=== PATIENT | male | born 1945 | race Caucasian/White ===

== ENCOUNTER 2017-04-17 14:29 | Emergency (ER) | payer OTHER ==
--- NOTE | 2017-04-17 15:45 | CR ---
EXAMINATION: Left shoulder HISTORY: Pain COMPARISON: 07/05/2014 TECHNIQUE: 3 views FINDINGS/IMPRESSION: Left shoulder replacement hardware is noted in good position and alignment. The re is no fracture or acute osseous abnormality. Moderate acromioclavicular osteoarthritic changes ar e noted.
--- NOTE | 2017-04-17 15:57 | EDM.PDOC ---
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 He denies any numbness or tingling he denies actual pain states it just "feels funny". He denies any numbness or tingling in his hand pain in his neck. Review of systems: As per history of present illness and below otherwise all systems reviewed and negative. Past medical history: As per history of present illness and as reviewed below otherwise noncontributory. Surgical history: As per history of present illness and as reviewed below otherwise noncontributory. Social history: No reported history of drug or alcohol abuse. Family history: As per history of present illness and as reviewed below otherwise noncontributory. Physical exam: General: Well developed, well nourished in NAD HEENT: Atraumatic, normocephalic, pupils reactive, negative for conjunctival pallor or scleral icterus, mucous membranes moist, throat clear, neck supple, nontender, trachea midline. Lungs: Clear to auscultation, breath sounds equal bilaterally, chest nontender. Heart: S1S2, regular, negative for clicks, rubs, or JVD. Abdomen: Soft, nondistended, nontender. Negative for masses or hepatosplenomegaly. Negative for costovertebral tenderness. Pelvis: Stable nontender. Genitourinary: Deferred. Rectal: Deferred. Extremities: Atraumatic, negative for cords or calf pain. Neurovascular unremarkable. Neuro: Awake, alert, oriented. Cranial nerves II through XII unremarkable. Cerebellum unremarkable. Motor and sensory unremarkable throughout. Exam nonfocal. Diagnostics: []X-ray showing shoulder hardware in place with good alignment Therapeutics: [] Impression: []Left Shoulder strain Plan: []Ice to shoulder, Motrin for pain and follow-up with PMD as needed Definitive disposition and diagnosis as appropriate pending reevaluation and review of above. Left Shoulder Pain Score (Numeric/FACES): 2 - Related Data Allergies Allergy/AdvReac Type Severity Reaction Status Date / Time No Known Allergies Allergy Verified 04/17/17 14:43 Home Meds: Home Meds Aspirin 325 mg PO DAILY 04/17/17 [History] Gemfibrozil 600 mg PO DAILY 04/17/17 [History] Levothyroxine 1.75 mcg PO ACBREAKFAST 04/17/17 [History] Lisinopril 5 mg PO DAILY 04/17/17 [History] Metoprolol Succinate [Toprol XL] 25 mg PO DAILY 04/17/17 [History] Simvastatin [Zocor] 20 mg PO BEDTIME 04/17/17 [History] Tamsulosin [Flomax] 0.4 mg PO BEDTIME 04/17/17 [History] Zolpidem [Ambien] 10 mg PO BEDTIME 04/17/17 [History] sitaGLIPtin Phos/Metformin HCl [Janumet 50-1,000 MG] 1,000 mg PO DAILY 04/17/17 [History] Past Medical History Cardiovascular History: Reports: High Cholesterol, Hypertension Psychiatric History: Reports: Depression Endocrine/Metabolic History: Reports: Diabetes, Type II - Infectious Disease History Infectious Disease History: Reports: Chicken Pox, Measles, Mumps - Past Surgical History HEENT Surgical History: Reports: Tonsillectomy Other HEENT Surgeries/Procedures: dental surgery GI Surgical History: Reports: Cholecystectomy Endocrine Surgical History: Reports: Thyroidectomy Social & Family History - Family History Family Medical History: Noncontributory - Tobacco Use Smoking Status *Q: Never Smoker Second Hand Smoke Exposure: No - Caffeine Use Caffeine Use: Reports: Coffee Caffeine Use Comment: 2cups/day - Alcohol Use Days Per Week of Alcohol Use: 0 - Recreational Drug Use Recreational Drug Use: No Review of Systems - Review of Systems Review Of Systems: See Below (See history of present illness) ED EXAM, GENERAL - Physical Exam Exam: See Below (See history of present illness) Course - Vital Signs Last Recorded V/S: Last Vital Signs Temp 36.4 C 04/17/17 14:37 Pulse 66 04/17/17 14:37 Resp 20 04/17/17 14:37 BP 148/68 H 04/17/17 14:37 Pulse Ox 97 04/17/17 14:37 Departure - Departure Time of Disposition: 15:56 Disposition: Home, Self-Care 01 Condition: good Clinical Impression: Left shoulder strain Qualifiers: Encounter type: initial encounter Qualified Code(s): S46.912A - Strain of unspecified muscle, fascia and tendon at shoulder and upper arm level, left arm , initial encounter - Discharge Information Referrals: Kodi Quiroz MD [Primary Care Provider] - Additional Instructions: The following information is given to patients seen in the emergency department who are being discharged to home. This information is to outline your options for follow-up care. We provide all patients seen in our emergency department with a follow-up referral. The need for follow-up, as well as the timing and circumstances, are variable depending upon the specifics of your emergency department visit. If you don't have a primary care physician on staff, we will provide you with a referral. We always advise you to contact your personal physician following an emergency department visit to inform them of the circumstance of the visit and for follow-up with them and/or the need for any referrals to a consulting specialist. The emergency department will also refer you to a specialist when appropriate. This referral assures that you have the opportunity for follow-up care with a specialist. All of these measure are taken in an effort to provide you with optimal care, which includes your follow-up. Under all circumstances we always encourage you to contact your private physician who remains a resource for coordinating your care. When calling for follow-up care, please make the office aware that this follow-up is from your recent emergency room visit. If for any reason you are refused follow-up, please contact the [facility] Emergency Department at and asked to speak to the emergency department charge nurse. [facility] [address] [place] [id number]
[2017-04-17 16:13] VITALS: BP 117/70
== END 2017-04-17 16:13 | disposition home or self-care (01) ==
LOC: MW.ED 14:29
DX: S46.912A Strain of unspecified muscle, fascia and tendon at shoulder and upper arm level, left arm, initial encounter (principal); I10 Essential (primary) hypertension; E78.00 Pure hypercholesterolemia, unspecified; E11.9 Type 2 diabetes mellitus without complications; Z90.49 Acquired absence of other specified parts of digestive tract; Z98.890 Other specified postprocedural states; Z79.82 Long term (current) use of aspirin; Z79.899 Other long term (current) drug therapy; Z96.612 Presence of left artificial shoulder joint; X50.0XXA Overexertion from strenuous movement or load, initial encounter; Y93.89 Activity, other specified; Y99.0 Civilian activity done for income or pay
CPT/HCPCS: 73030-26-LT; 73030-LT; 99282; 99283

== ENCOUNTER 2017-05-09 13:38 | Emergency (ER) | payer OTHER ==
[2017-05-09] MEDS ORDERED: Sodium Chloride 0.9% 2.5 ML Syringe FLUSH PRN (14:04)
[2017-05-09] MEDS ORDERED: Sodium Chloride 0.9% 10 ML Syringe FLUSH PRN (14:04)
[2017-05-09] MEDS ORDERED: Sodium Chloride 0.9% 1,000 ML IV ONE ×2 (14:06→15:30)
--- NOTE | 2017-05-09 14:14 | EDM.PDOC ---
ED HPI GENERAL MEDICAL PROBLEM - General Chief Complaint: Syncope Stated Complaint: LIGHT HEADED Time Seen by Provider: 05/09/17 14:12 Source of Information: Reports: Patient, Family History Limitations: Reports: No Limitations - History of Present Illness INITIAL COMMENTS - FREE TEXT/NARRATIVE: HISTORY AND PHYSICAL: []71-year-old male presenting with concerns of dizziness History of Present Illness: []This morning awakened blood sugar is 99. He took his medicines and weighted his hour and had breakfast Blood sugar was sent to 59. Is not feeling well and then reported the dizziness. Patient had been seen previously about a year ago was hospitalized at for similar symptoms. Diagnosis at that time was dehydration. Patient is a diabetic Primary care provider is Dr. Quiroz he was walking in the brush down the bed linens and noticed 3 ticks on him "the other day" he pulled them off there is an area with a raised erythema to his abdomen Review of Systems: As per history of present illness and below otherwise all systems reviewed and negative. Past medical history: As per history of present illness and as reviewed below otherwise noncontributory. Surgical history: As per history of present illness and as reviewed below otherwise noncontributory. Social history: No reported history of drug or alcohol abuse. Family history: As per history of present illness and as reviewed below otherwise noncontributory. Physical exam: Alert oriented no neurological deficits. Dizziness is increased when laying flat. Answering questions appropriately HEENT: Atraumatic, normocehpalic, pupils reactive, negative for conjunctival pallor or scleral icterus, mucous membranes moist, throat clear, neck supple, nontender, trachea midline. Lungs: Clear to auscultation, breath sounds equal bilaterally, chest non tender. Heart: S1S2, regular, negative for clicks, rubs, or JVD. Abdomen: Soft, nondistended, nontender. Negative for masses or hepatossplenmegaly. Negative for costovertebral tenderness. Erythematous area raised and firm Pelvis: Stable nontender. Genitourinary: Deferred. Rectal: Deferred Extremities: Atraumatic, negative for cords or calf pain. Neurovascular unremarkable. Neuro: Awake, alert, oriented. Cranial nerves II through XII unremarkable. Cerebellum unremarkable. Motor and sensory unremarkable throughout. Exam nonfocal. Diagnostics: [EKG chest x-ray CBC CMP urinalysis] Therapeutics: [Normal saline] Impression: []Positional vertigo Cellulitis from tick bite to abdomen Plan: []Doxycycline 100 mg twice a day 14 days Definitive disposition and diagnosis as appropriate pending reevaluation and review of above. Onset: Today, Sudden - Related Data Allergies Allergy/AdvReac Type Severity Reaction Status Date / Time No Known Allergies Allergy Verified 04/17/17 14:43 Home Meds: Home Meds Aspirin 325 mg PO DAILY 04/17/17 [History] Gemfibrozil 600 mg PO DAILY 04/17/17 [History] Levothyroxine 1.75 mcg PO ACBREAKFAST 04/17/17 [History] Lisinopril 5 mg PO DAILY 04/17/17 [History] Metoprolol Succinate [Toprol XL] 25 mg PO DAILY 04/17/17 [History] Simvastatin [Zocor] 20 mg PO BEDTIME 04/17/17 [History] Tamsulosin [Flomax] 0.4 mg PO BEDTIME 04/17/17 [History] Zolpidem [Ambien] 10 mg PO BEDTIME 04/17/17 [History] sitaGLIPtin Phos/Metformin HCl [Janumet 50-1,000 MG] 1,000 mg PO DAILY 04/17/17 [History] Canagliflozin [Invokana] 300 mg DAILY 05/09/17 [History] Doxycycline [Vibramycin] 100 mg PO Q12HR #30 cap 05/09/17 [Rx] Metronidazole [IJD: metroNIDAZOLE] 500 mg BID 05/09/17 [History] Sertraline [Zoloft] 25 mg DAILY 05/09/17 [History] Past Medical History Cardiovascular History: Reports: High Cholesterol, Hypertension Psychiatric History: Reports: Depression Endocrine/Metabolic History: Reports: Diabetes, Type II - Infectious Disease History Infectious Disease History: Reports: Chicken Pox, Measles, Mumps - Past Surgical History HEENT Surgical History: Reports: Tonsillectomy Other HEENT Surgeries/Procedures: dental surgery GI Surgical History: Reports: Cholecystectomy Endocrine Surgical History: Reports: Thyroidectomy Social & Family History - Family History Family Medical History: Noncontributory - Tobacco Use Smoking Status *Q: Never Smoker Second Hand Smoke Exposure: No - Caffeine Use Caffeine Use: Reports: Coffee Caffeine Use Comment: 2cups/day - Alcohol Use Days Per Week of Alcohol Use: 0 - Recreational Drug Use Recreational Drug Use: No ED ROS GENERAL - Review of Systems Review Of Systems: ROS reveals no pertinent complaints other than HPI. ED EXAM, DIZZINESS - Physical Exam Exam: See Below (see dictation) Course - Vital Signs Last Recorded V/S: Last Vital Signs Temp 36.4 C 05/09/17 14:05 Pulse 70 05/09/17 15:27 Resp 16 05/09/17 15:27 BP 137/88 05/09/17 15:27 Pulse Ox 97 05/09/17 15:27 - Orders/Labs/Meds Orders: Active Orders 24 hr Category Date Time Status EKG Documentation Completion [RC] STAT Care 05/09/17 14:05 Active Oxygen Therapy, ED [RC] ASDIRECTED Care 05/09/17 14:04 Active Sodium Chloride 0.9% [Normal Saline] 1,000 ml Med 05/09/17 15:30 Active IV STAT Sodium Chloride 0.9% [Saline Flush] Med 05/09/17 14:04 Active 10 ml FLUSH ASDIRECTED PRN Sodium Chloride 0.9% [Saline Flush] Med 05/09/17 14:04 Active 2.5 ml FLUSH ASDIRECTED PRN Saline Lock Insert [OM.PC] Stat Oth 05/09/17 14:04 Ordered Medication Orders Sodium Chloride (Normal Saline) 1,000 mls @ 999 mls/hr IV STAT ONE Stop: 05/09/17 16:30 Sodium Chloride (Saline Flush) 10 ml FLUSH ASDIRECTED PRN PRN Reason: Keep Vein Open Last Admin: 05/09/17 14:13 Dose: 10 ml Sodium Chloride (Saline Flush) 2.5 ml FLUSH ASDIRECTED PRN PRN Reason: Keep Vein Open Last Admin: 05/09/17 14:13 Dose: 2.5 ml Labs: Laboratory Tests 05/09/17 05/09/17 05/09/17 Range/Units 14:09 14:09 14:09 WBC 9.37 (4.0-11.0) K/uL RBC 4.69 (4.50-5.90) M/uL Hgb 13.8 (13.0-17.0) g/dL Hct 40.9 (38.0-50.0) % MCV 87.2 (80.0-98.0) fL MCH 29.4 (27.0-32.0) pg MCHC 33.7 (31.0-37.0) g/dL RDW Std Deviation 42.4 (28.0-62.0) fl RDW Coeff of Kalin 13 (11.0-15.0) % Plt Count 156 (150-400) K/uL MPV 8.90 (7.40-12.00) fL Neut % (Auto) 78.1 (48.0-80.0) % Lymph % (Auto) 14.2 L (16.0-40.0) % [place] % (Auto) 4.9 (0.0-15.0) % Eos % (Auto) 2.6 (0.0-7.0) % Baso % (Auto) 0.2 (0.0-1.5) % Neut # (Auto) 7.3 H (1.4-5.7) K/uL Lymph # (Auto) 1.3 (0.6-2.4) K/uL [place] # (Auto) 0.5 (0.0-0.8) K/uL Eos # (Auto) 0.2 (0.0-0.7) K/uL Baso # (Auto) 0.0 (0.0-0.1) K/uL Nucleated RBC % 0.0 /100WBC Nucleated RBCs # 0 K/uL Sodium 135 L (136-146) mmol/L Potassium 3.8 (3.5-5.1) mmol/L Chloride 105 (98-110) mmol/L Carbon Dioxide 19 L (21-31) mmol/L BUN 19 (6.0-23.0) mg/dL Creatinine 1.0 (0.6-1.5) mg/dL Est Cr Clr Drug Dosing 61.51 mL/min Estimated GFR (MDRD) > 60.0 ml/min Glucose 236 H (60-110) mg/dL Calcium 8.8 (8.8-10.8) mg/dL Total Bilirubin 0.5 (0.1-1.5) mg/dL AST 19 (5-40) IU/L ALT 22 (8-54) IU/L Alkaline Phosphatase 75 (40-150) Troponin I < 0.10 (0.0-0.29) NG/ML Total Protein 6.5 (6.0-8.0) g/dL Albumin 4.1 (3.4-4.8) g/dL Globulin 2.4 (2.0-3.5) g/dL Albumin/Globulin Ratio 1.7 (1.3-2.8) Urine Color Urine Appearance Urine pH (5.0-8.0) Ur Specific Nichols (1.001-1.035) Urine Protein (NEGATIVE) mg/dL Urine Glucose (UA) (NEGATIVE) mg/dL Urine Ketones (NEGATIVE) mg/dL Urine Occult Blood (NEGATIVE) Urine Nitrite (NEGATIVE) Urine Bilirubin (NEGATIVE) Urine Urobilinogen (<2.0) EU/dL Ur Leukocyte Esterase (NEGATIVE) Urine RBC (0-2/HPF) Urine WBC (0-5/HPF) Ur Epithelial Cells (NONE-FEW) Amorphous Sediment (NEGATIVE) Urine Bacteria (NEGATIVE) Urine Mucus (NONE-MOD) 05/09/17 Range/Units 15:20 WBC (4.0-11.0) K/uL RBC (4.50-5.90) M/uL Hgb (13.0-17.0) g/dL Hct (38.0-50.0) % MCV (80.0-98.0) fL MCH (27.0-32.0) pg MCHC (31.0-37.0) g/dL RDW Std Deviation (28.0-62.0) fl RDW Coeff of Kalin (11.0-15.0) % Plt Count (150-400) K/uL MPV (7.40-12.00) fL Neut % (Auto) (48.0-80.0) % Lymph % (Auto) (16.0-40.0) % [place] % (Auto) (0.0-15.0) % Eos % (Auto) (0.0-7.0) % Baso % (Auto) (0.0-1.5) % Neut # (Auto) (1.4-5.7) K/uL Lymph # (Auto) (0.6-2.4) K/uL [place] # (Auto) (0.0-0.8) K/uL Eos # (Auto) (0.0-0.7) K/uL Baso # (Auto) (0.0-0.1) K/uL Nucleated RBC % /100WBC Nucleated RBCs # K/uL Sodium (136-146) mmol/L Potassium (3.5-5.1) mmol/L Chloride (98-110) mmol/L Carbon Dioxide (21-31) mmol/L BUN (6.0-23.0) mg/dL Creatinine (0.6-1.5) mg/dL Est Cr Clr Drug Dosing mL/min Estimated GFR (MDRD) ml/min Glucose (60-110) mg/dL Calcium (8.8-10.8) mg/dL Total Bilirubin (0.1-1.5) mg/dL AST (5-40) IU/L ALT (8-54) IU/L Alkaline Phosphatase (40-150) Troponin I (0.0-0.29) NG/ML Total Protein (6.0-8.0) g/dL Albumin (3.4-4.8) g/dL Globulin (2.0-3.5) g/dL Albumin/Globulin Ratio (1.3-2.8) Urine Color YELLOW Urine Appearance CLEAR Urine pH 6.0 (5.0-8.0) Ur Specific Nichols <= 1.005 (1.001-1.035) Urine Protein NEGATIVE (NEGATIVE) mg/dL Urine Glucose (UA) >=1000 (NEGATIVE) mg/dL Urine Ketones NEGATIVE (NEGATIVE) mg/dL Urine Occult Blood NEGATIVE (NEGATIVE) Urine Nitrite NEGATIVE (NEGATIVE) Urine Bilirubin NEGATIVE (NEGATIVE) Urine Urobilinogen 0.2 (<2.0) EU/dL Ur Leukocyte Esterase NEGATIVE (NEGATIVE) Urine RBC NONE SEEN (0-2/HPF) Urine WBC 0-2 (0-5/HPF) Ur Epithelial Cells NOT SEEN (NONE-FEW) Amorphous Sediment NOT SEEN (NEGATIVE) Urine Bacteria NOT SEEN (NEGATIVE) Urine Mucus NOT SEEN (NONE-MOD) Meds: Medications Generic Name Dose Route Start Last Admin Trade Name Freq PRN Reason Stop Dose Admin Sodium Chloride 1,000 mls @ 999 mls/hr 05/09/17 15:30 Normal Saline IV 05/09/17 16:30 STAT ONE Sodium Chloride 10 ml 05/09/17 14:04 05/09/17 14:13 Saline Flush FLUSH 10 ml ASDIRECTED PRN Administration Keep Vein Open Sodium Chloride 2.5 ml 05/09/17 14:04 05/09/17 14:13 Saline Flush FLUSH 2.5 ml ASDIRECTED PRN Administration Keep Vein Open Discontinued Medications Generic Name Dose Route Start Last Admin Trade Name Freq PRN Reason Stop Dose Admin Sodium Chloride 1,000 mls @ 999 mls/hr 05/09/17 14:06 05/09/17 14:13 Normal Saline IV 05/09/17 15:06 999 mls/hr STAT ONE Administration Departure - Departure Time of Disposition: 15:56 Disposition: Home, Self-Care 01 Condition: Good Clinical Impression: Positional vertigo Qualifiers: Laterality: unspecified laterality Qualified Code(s): H81.10 - Benign paroxysmal vertigo, unspecified ear - Discharge Information Prescriptions: Doxycycline [Vibramycin] 100 mg PO Q12HR #30 cap Forms: ED Department Discharge Additional Instructions: The following information is given to patients seen in the emergency department who are being discharged to home. This information is to outline your options for follow-up care. We provide all patients seen in our emergency department with a follow-up referral. The need for follow-up, as well as the timing and circumstances, are variable depending upon the specifics of your emergency department visit. If you don't have a primary care physician on staff, we will provide you with a referral. We always advise you to contact your personal physician following an emergency department visit to inform them of the circumstance of the visit and for follow-up with them and/or the need for any referrals to a consulting specialist. The emergency department will also refer you to a specialist when appropriate. This referral assures that you have the opportunity for followup care with a specialist. All of these measure are taken in an effort to provide you with optimal care, which includes your followup. Under all circumstances we always encourage you to contact your private physician who remains a resource for coordinating your care. When calling for followup care, please make the office aware that this follow-up is from your recent emergency room visit. If for any reason you are refused follow-up, please contact the [facility] emergency department at and asked to speak to the emergency department charge nurse. Please follow-up with your primary care provider Dr. Quiroz Doxycycline has been issued for your cellulitis from tick bite - My Orders Last 24 Hours: My Active Orders 05/09/17 14:04 Oxygen Therapy, ED [RC] ASDIRECTED Sodium Chloride 0.9% [Saline Flush] 10 ml FLUSH ASDIRECTED PRN Sodium Chloride 0.9% [Saline Flush] 2.5 ml FLUSH ASDIRECTED PRN Saline Lock Insert [OM.PC] Stat 05/09/17 14:05 EKG Documentation Completion [RC] STAT 05/09/17 15:30 Sodium Chloride 0.9% [Normal Saline] 1,000 ml IV STAT - Assessment/Plan Last 24 Hours: My Active Orders 05/09/17 14:04 Oxygen Therapy, ED [RC] ASDIRECTED Sodium Chloride 0.9% [Saline Flush] 10 ml FLUSH ASDIRECTED PRN Sodium Chloride 0.9% [Saline Flush] 2.5 ml FLUSH ASDIRECTED PRN Saline Lock Insert [OM.PC] Stat 05/09/17 14:05 EKG Documentation Completion [RC] STAT 05/09/17 15:30 Sodium Chloride 0.9% [Normal Saline] 1,000 ml IV STAT
[2017-05-09 14:56] LABS: CHLORIDE,CL 105 mmol/L (98-110); SODIUM,NA 135 mmol/L (136-146)
--- NOTE | 2017-05-09 15:06 | CR ---
EXAMINATION: AP chest radiograph. HISTORY: Shortness of breath. FINDINGS: The trachea is midline. The cardiomediastinal silhouette is within normal limits. No pulmonary infil trates, effusions or pneumothorax. Left shoulder replacement hardware noted. IMPRESSION: No acute cardiopulmonary process.
--- NOTE | 2017-05-09 15:10 | CT ---
EXAMINATION: Non contrast CT head. Coronal and sagittal reformats. HISTORY: Pain FINDINGS: No evidence of intra or extra axial hemorrhage, mass, midline shift, hydrocephalus or edema. There is a stable prominence of the extra-axial spaces within the anterior aspect of the left temporal lob e, this could represent an underlying arachnoid cyst. Likely an old tiny periventricular lacunar inf arct within the left parietal region. No hypoattenuation changes in the major vascular territories to suggest acute infarct. No abnormal intracranial calcifications are detected. Mild vascular calcifications. Paranasal sinuses and mastoid air cells are well aerated without substantial findings. The orbits a nd globes are symmetric. Pituitary fossa appears unremarkable. Calvarium is intact. No evidence of skull fracture. IMPRESSION: No acute intracranial findings.
[2017-05-09 16:44] VITALS: BP 121/80
== END 2017-05-09 16:58 | disposition home or self-care (01) ==
LOC: MW.ED 13:38
DX: H81.10 Benign paroxysmal vertigo, unspecified ear (principal); S30.861A Insect bite (nonvenomous) of abdominal wall, initial encounter; L03.311 Cellulitis of abdominal wall; I10 Essential (primary) hypertension; E78.00 Pure hypercholesterolemia, unspecified; F32.9 Major depressive disorder, single episode, unspecified; E11.9 Type 2 diabetes mellitus without complications; Z98.890 Other specified postprocedural states; Z90.49 Acquired absence of other specified parts of digestive tract; E89.0 Postprocedural hypothyroidism; Z79.82 Long term (current) use of aspirin; Z79.899 Other long term (current) drug therapy; W57.XXXA Bitten or stung by nonvenomous insect and other nonvenomous arthropods, initial encounter
CPT/HCPCS: 36415; 70450; 71010; 80053; 81001; 84484; 85025; 93005; 96360; 96361; 99284; J7040

== ENCOUNTER 2017-10-15 22:06 | Observation (INO) | payer OTHER, MEDICARE ==
[2017-10-15] MEDS ORDERED: Sodium Chloride 0.9% 10 ML Syringe FLUSH PRN (22:11)
[2017-10-15] MEDS ORDERED: Sodium Chloride 0.9% 2.5 ML Syringe FLUSH PRN (22:11)
[2017-10-15] MEDS ORDERED: Sodium Chloride 0.9% 1,000 ML IV ONE (22:11)
[2017-10-15] MEDS ORDERED: diphenhydrAMINE 50 MG/ML SDV IVPUSH ONE (22:11)
--- NOTE | 2017-10-15 22:16 | EDM.PDOC ---
ED HPI GENERAL MEDICAL PROBLEM - General Chief Complaint: Gastrointestinal Problem Stated Complaint: sick Time Seen by Provider: 10/15/17 22:10 - History of Present Illness INITIAL COMMENTS - FREE TEXT/NARRATIVE: HISTORY AND PHYSICAL: History of present illness: The patient is a 72-year-old male who follows in our family practice clinic with Dr. Quiroz and has a history of diabetes a cardiac stent in 1995 diverticulitis hypertension hypercholesterolemia and hypothyroidism who presents via EMS for complaints of nausea and vomiting that started about 8 or 9 this morning and then nausea throughout the day without any vomiting until this evening. The patient denies any abdominal pain chest pain shortness of breath and has no headaches fevers chills or upper respiratory symptoms. The patient said he vomited a few times this morning and then was just nauseated all day and then had an emesis after EMS was called which per their report look like undigested food no black or bloody emesis. The patient says he has never had any abdominal pain and has no pain at all. The patient tells me he does not follow with a technical illustrator and is stable from his cardiac standpoint and has no abdominal surgical history. He says he was last treated for his diverticulitis in the spring. He says he always has loose stools and they are not different as far as character or color and they're not black or bloody. The patient currently in the ED says he feels a little bit dizzy but is not lightheaded and he has no recent head trauma. Patient does admit to me that he does have a history of vertigo in the past for which she had a CT physical therapy and he is not sure that this feels like his prior episode. He does tell me that when he moves his head he does feel little more dizzy. He currently denies any headache. Patient received 8 mg of Zofran prior to arrival per EMS and he states he does feel less nauseated. Review of systems: As per history of present illness and below otherwise all systems reviewed and negative. Past medical history: As per history of present illness and as reviewed below otherwise noncontributory. Surgical history: As per history of present illness and as reviewed below otherwise noncontributory. Social history: No reported history of drug or alcohol abuse. Family history: As per history of present illness and as reviewed below otherwise noncontributory. Physical exam: Gen.: Well-developed well-nourished man who is mildly overweight and has some vomitus on his shirt. He is awake alert and communicating clearly and moving all extremities without distress. HEENT: Atraumatic, normocephalic, pupils reactive, EOMs are intact and I am not able to elicit any nystagmus, when asked the patient to move his head side to side quickly he does say that he feels a little dizzy with that negative for conjunctival pallor or scleral icterus, mucous membranes tacky, throat clear, neck supple, nontender, trachea midline. Lungs: Clear to auscultation, breath sounds equal bilaterally, chest nontender. Heart: S1S2, regular, negative for clicks, rubs, or JVD. Abdomen: Soft, nondistended, nontender. Negative for masses or hepatosplenomegaly. Negative for costovertebral tenderness. Pelvis: Stable nontender. Genitourinary: Deferred. Rectal: Deferred. Extremities: Atraumatic, negative for cords or calf pain. Neurovascular unremarkable. No pedal edema and full range of motion Neuro: Awake, alert, oriented. Cranial nerves II through XII unremarkable. Cerebellum unremarkable. Motor and sensory unremarkable throughout. Exam nonfocal. Diagnostics: EKG CBC CMP amylase lipase troponin UA CT scan of the head chest x-ray lactate blood cultures 2 Therapeutics: IV O2 monitor IV fluids, patient received 8 mg of Zofran per EMS prior to arrival, Benadryl and Tylenol for his fever of 100.[address] [facility] and I got the patient up because he wanted to urinate in the bathroom not in the bed with the urinal and I was able to witness his gait. He says he feels steady but he looks somewhat wobbly and a bit off balance but is not exhibiting any signs of weakness. He seems a bit disoriented with direction he is being given such as he is not sure where the urine cup is one he is holding his hands. He does state that he is not dizzy or lightheaded and still has no pain such as chest pain or abdominal pain. Since he has arrived he has not had any vomiting and he states he does not feel nauseated. I asked the son about what I witnessed. The son tells me that he packed his father up from work this morning as he said he was starting to have a "migraine headache" and the son states that when he gets these headaches he sometimes is confused and not quite himself. He noticed that he seemed somewhat infused throughout the whole day today but he did not think that that was particularly different than prior episodes when he has had headaches. The patient initially denied to me that he ever had a headache today but when I specifically questioned him with what the son told me he says that yes he does have a diagnosis of migraine headaches and he gets them intermittently and this was a typical headache for him. He usually has nausea and dizziness with his migraines and he says that maybe the symptoms he is experiencing now is due to his headache. He is asking for an ice pack as this usually helps. I discussed testing results with the son and the patient and have advised admission to the hospital and will discuss this case with our hospitalist. The patient is currently resting comfortably and overall looks clinically improved. 0025: Case was discussed with our hospitalist Dr. Osman agrees with the care plan as well as requesting observation admission. Impression: Right upper lobe pneumonia Nausea and vomiting, mild confusion, history of migraine headaches Definitive disposition and diagnosis as appropriate pending reevaluation and review of above. - Related Data Allergies Allergy/AdvReac Type Severity Reaction Status Date / Time No Known Allergies Allergy Verified 10/15/17 22:28 Home Meds: Home Meds Aspirin 325 mg PO DAILY 04/17/17 [History] Gemfibrozil 600 mg PO DAILY 04/17/17 [History] Levothyroxine 1.75 mcg PO ACBREAKFAST 04/17/17 [History] Lisinopril 5 mg PO DAILY 04/17/17 [History] Metoprolol Succinate [Toprol XL] 25 mg PO DAILY 04/17/17 [History] Simvastatin [Zocor] 20 mg PO BEDTIME 04/17/17 [History] Tamsulosin [Flomax] 0.4 mg PO BEDTIME 04/17/17 [History] Zolpidem [Ambien] 10 mg PO BEDTIME 04/17/17 [History] sitaGLIPtin Phos/Metformin HCl [Janumet 50-1,000 MG] 1,000 mg PO DAILY 04/17/17 [History] Canagliflozin [Invokana] 300 mg DAILY 05/09/17 [History] Sertraline [Zoloft] 25 mg DAILY 05/09/17 [History] Isomethept/Dichlphn/Acetaminop [Gwetisdnwa-Nptqcgmxys-Xlylimgp] 1 each PO ASDIRECTED PRN 10/15/17 [History] Past Medical History Cardiovascular History: Reports: Angina, High Cholesterol, Hypertension Respiratory History: Reports: Sleep Apnea Gastrointestinal History: Reports: Diverticulosis Genitourinary History: Reports: BPH Musculoskeletal History: Reports: RA Neurological History: Reports: Migraines Psychiatric History: Reports: Depression Endocrine/Metabolic History: Reports: Diabetes, Type II Oncologic (Cancer) History: Reports: Thyroid - Infectious Disease History Infectious Disease History: Reports: Chicken Pox, Measles, Mumps - Past Surgical History Head Surgeries/Procedures: Reports: None HEENT Surgical History: Reports: Tonsillectomy Other HEENT Surgeries/Procedures: dental surgery Cardiovascular Surgical History: Reports: Coronary Artery Stent GI Surgical History: Reports: Cholecystectomy Endocrine Surgical History: Reports: Thyroidectomy Musculoskeletal Surgical History: Reports: Shoulder Replacement Social & Family History - Family History Family Medical History: Noncontributory - Tobacco Use Smoking Status *Q: Never Smoker Second Hand Smoke Exposure: No - Caffeine Use Caffeine Use: Reports: Coffee Caffeine Use Comment: 2cups/day - Alcohol Use Days Per Week of Alcohol Use: 0 - Recreational Drug Use Recreational Drug Use: No ED ROS GENERAL - Review of Systems Review Of Systems: ROS reveals no pertinent complaints other than HPI. ED EXAM, GENERAL - Physical Exam Exam: See Below (See dictation) Course - Vital Signs Last Recorded V/S: Last Vital Signs Temp 38.1 C 10/15/17 22:21 Pulse 87 10/15/17 22:21 Resp 12 10/15/17 22:21 BP 123/84 10/15/17 22:21 Pulse Ox 97 10/15/17 22:21 - Orders/Labs/Meds Orders: Active Orders 24 hr Category Date Time Status Patient Status [ADT] Stat ADT 10/16/17 00:33 Ordered Cardiac Monitoring [RC] . DIRECTED Care 10/15/17 22:11 Active EKG Documentation Completion [RC] STAT Care 10/15/17 22:11 Active Oxygen Therapy, ED [RC] ASDIRECTED Care 10/15/17 22:11 Active Pulse Oximetry [RC] ASDIRECTED Care 10/15/17 22:11 Active Chest 1V Frontal [CR] Stat Exams 10/15/17 22:11 Taken Head wo Cont [CT] Stat Exams 10/15/17 22:11 Taken CULTURE BLOOD [BC] Stat Lab 10/15/17 22:39 Received CULTURE BLOOD [BC] Stat Lab 10/15/17 22:48 Received Sodium Chloride 0.9% [Normal Saline] 1,000 ml Med 10/16/17 00:00 Active IV ASDIRECTED Sodium Chloride 0.9% [Saline Flush] Med 10/15/17 22:11 Active 10 ml FLUSH ASDIRECTED PRN Sodium Chloride 0.9% [Saline Flush] Med 10/15/17 22:11 Active 2.5 ml FLUSH ASDIRECTED PRN Blood Culture x2 Reflex Set [OM.PC] Stat Oth 10/15/17 22:25 Ordered Saline Lock Insert [OM.PC] Stat Oth 10/15/17 22:11 Ordered Medication Orders Sodium Chloride (Normal Saline) 1,000 mls @ 75 mls/hr IV ASDIRECTED DENY Last Admin: 10/16/17 00:02 Dose: 75 mls/hr Sodium Chloride (Saline Flush) 10 ml FLUSH ASDIRECTED PRN PRN Reason: Keep Vein Open Last Admin: 10/15/17 22:29 Dose: 10 ml Sodium Chloride (Saline Flush) 2.5 ml FLUSH ASDIRECTED PRN PRN Reason: Keep Vein Open Last Admin: 10/15/17 22:29 Dose: 2.5 ml Labs: Laboratory Tests 10/15/17 10/15/17 10/15/17 Range/Units 22:27 22:27 22:27 WBC 12.51 H (4.0-11.0) K/uL RBC 4.88 (4.50-5.90) M/uL Hgb 14.3 (13.0-17.0) g/dL Hct 41.6 (38.0-50.0) % MCV 85.2 (80.0-98.0) fL MCH 29.3 (27.0-32.0) pg MCHC 34.4 (31.0-37.0) g/dL RDW Std Deviation 40.0 (28.0-62.0) fl RDW Coeff of Kalin 13 (11.0-15.0) % Plt Count 190 (150-400) K/uL MPV 9.10 (7.40-12.00) fL Neut % (Auto) 77.9 (48.0-80.0) % Lymph % (Auto) 16.1 (16.0-40.0) % Ma[place]ick % (Auto) 5.7 (0.0-15.0) % Eos % (Auto) 0.1 (0.0-7.0) % Baso % (Auto) 0.2 (0.0-1.5) % Neut # (Auto) 9.8 H (1.4-5.7) K/uL Lymph # (Auto) 2.0 (0.6-2.4) K/uL Ma[place]ick # (Auto) 0.7 (0.0-0.8) K/uL Eos # (Auto) 0.0 (0.0-0.7) K/uL Baso # (Auto) 0.0 (0.0-0.1) K/uL Nucleated RBC % 0.0 /100WBC Nucleated RBCs # 0 K/uL Lactate 1.4 (0.20-2.00) mmol/L Sodium 134 L (136-146) mmol/L Potassium 3.6 (3.5-5.1) mmol/L Chloride 102 (98-110) mmol/L Carbon Dioxide 20 L (21-31) mmol/L BUN 21 (6.0-23.0) mg/dL Creatinine 1.3 (0.6-1.5) mg/dL Est Cr Clr Drug Dosing 47.42 mL/min Estimated GFR (MDRD) 54.0 ml/min Glucose 135 H (60-110) mg/dL Calcium 9.3 (8.8-10.8) mg/dL Total Bilirubin 0.5 (0.1-1.5) mg/dL AST 14 (5-40) IU/L ALT 15 (8-54) IU/L Alkaline Phosphatase 79 (40-150) Troponin I < 0.10 (0.0-0.29) NG/ML Total Protein 7.1 (6.0-8.0) g/dL Albumin 4.3 (3.4-4.8) g/dL Globulin 2.8 (2.0-3.5) g/dL Albumin/Globulin Ratio 1.5 (1.3-2.8) Amylase 41 (10-90) U/L Lipase 14 (7-80) U/L Urine Color Urine Appearance Urine pH (5.0-8.0) Ur Specific [place] (1.001-1.035) Urine Protein (NEGATIVE) mg/dL Urine Glucose (UA) (NEGATIVE) mg/dL Urine Ketones (NEGATIVE) mg/dL Urine Occult Blood (NEGATIVE) Urine Nitrite (NEGATIVE) Urine Bilirubin (NEGATIVE) Urine Urobilinogen (<2.0) EU/dL Ur Leukocyte Esterase (NEGATIVE) Urine RBC (0-2/HPF) Urine WBC (0-5/HPF) Ur Epithelial Cells (NONE-FEW) Urine Bacteria (NEGATIVE) 10/15/17 Range/Units 23:30 WBC (4.0-11.0) K/uL RBC (4.50-5.90) M/uL Hgb (13.0-17.0) g/dL Hct (38.0-50.0) % MCV (80.0-98.0) fL MCH (27.0-32.0) pg MCHC (31.0-37.0) g/dL RDW Std Deviation (28.0-62.0) fl RDW Coeff of Kalin (11.0-15.0) % Plt Count (150-400) K/uL MPV (7.40-12.00) fL Neut % (Auto) (48.0-80.0) % Lymph % (Auto) (16.0-40.0) % Maverick % (Auto) (0.0-15.0) % Eos % (Auto) (0.0-7.0) % Baso % (Auto) (0.0-1.5) % Neut # (Auto) (1.4-5.7) K/uL Lymph # (Auto) (0.6-2.4) K/uL Maverick # (Auto) (0.0-0.8) K/uL Eos # (Auto) (0.0-0.7) K/uL Baso # (Auto) (0.0-0.1) K/uL Nucleated RBC % /100WBC Nucleated RBCs # K/uL Lactate (0.20-2.00) mmol/L Sodium (136-146) mmol/L Potassium (3.5-5.1) mmol/L Chloride (98-110) mmol/L Carbon Dioxide (21-31) mmol/L BUN (6.0-23.0) mg/dL Creatinine (0.6-1.5) mg/dL Est Cr Clr Drug Dosing mL/min Estimated GFR (MDRD) ml/min Glucose (60-110) mg/dL Calcium (8.8-10.8) mg/dL Total Bilirubin (0.1-1.5) mg/dL AST (5-40) IU/L ALT (8-54) IU/L Alkaline Phosphatase (40-150) Troponin I (0.0-0.29) NG/ML Total Protein (6.0-8.0) g/dL Albumin (3.4-4.8) g/dL Globulin (2.0-3.5) g/dL Albumin/Globulin Ratio (1.3-2.8) Amylase (10-90) U/L Lipase (7-80) U/L Urine Color YELLOW Urine Appearance CLEAR Urine pH 5.5 (5.0-8.0) Ur Specific [place] 1.010 (1.001-1.035) Urine Protein NEGATIVE (NEGATIVE) mg/dL Urine Glucose (UA) >=1000 (NEGATIVE) mg/dL Urine Ketones NEGATIVE (NEGATIVE) mg/dL Urine Occult Blood NEGATIVE (NEGATIVE) Urine Nitrite NEGATIVE (NEGATIVE) Urine Bilirubin NEGATIVE (NEGATIVE) Urine Urobilinogen 0.2 (<2.0) EU/dL Ur Leukocyte Esterase NEGATIVE (NEGATIVE) Urine RBC 0-2 (0-2/HPF) Urine WBC 0-1 (0-5/HPF) Ur Epithelial Cells RARE (NONE-FEW) Urine Bacteria FEW (NEGATIVE) Meds: Medications Generic Name Dose Route Start Last Admin Trade Name Freq PRN Reason Stop Dose Admin Sodium Chloride 1,000 mls @ 75 mls/hr 10/16/17 00:00 10/16/17 00:02 Normal Saline IV 75 mls/hr ASDIRECTED DENY Administration Sodium Chloride 10 ml 10/15/17 22:11 10/15/17 22:29 Saline Flush FLUSH 10 ml ASDIRECTED PRN Administration Keep Vein Open Sodium Chloride 2.5 ml 10/15/17 22:11 10/15/17 22:29 Saline Flush FLUSH 2.5 ml ASDIRECTED PRN Administration Keep Vein Open Discontinued Medications Generic Name Dose Route Start Last Admin Trade Name Freq PRN Reason Stop Dose Admin Acetaminophen 650 mg 10/15/17 22:25 10/15/17 22:29 Tylenol PO 10/15/17 22:26 650 mg NOW ONE Administration Diphenhydramine HCl 25 mg 10/15/17 22:11 10/15/17 22:29 Benadryl IVPUSH 10/15/17 22:12 25 mg ONETIME ONE Administration Sodium Chloride 1,000 mls @ 999 mls/hr 10/15/17 22:11 10/15/17 22:29 Normal Saline IV 10/15/17 23:11 999 mls/hr STAT ONE Administration Ceftriaxone Sodium/Dextrose 1 50 mls @ 100 mls/hr 10/15/17 23:48 10/16/17 00: 27 gm/ Premix IV 10/16/17 00:17 100 mls/hr ONETIME ONE Administration Piperacillin Sod/Tazobactam 50 mls @ 100 mls/hr 10/15/17 23:48 10/15/17 23:59 Sod 3.375 gm/ Sodium Chloride IV 10/16/17 00:17 100 mls/hr ONETIME ONE Administration Departure - Departure Time of Disposition: 00:03 Disposition: Refer to Observation Condition: Good Clinical Impression: Confusion Pneumonia Qualifiers: Pneumonia type: due to unspecified organism Laterality: right Lung location: upper lobe of lung Qualified Code(s): J18.1 - Lobar pneumonia, unspecified organism Vomiting Qualifiers: Vomiting type: unspecified Vomiting Intractability: non-intractable Nausea presence: with nausea Qualified Code(s): R11.2 - Nausea with vomiting, unspecified - Discharge Information Referrals: Luisa Messer PA [Primary Care Provider] - Forms: ED Department Discharge - My Orders Last 24 Hours: My Active Orders 10/15/17 22:11 Cardiac Monitoring [RC] . DIRECTED EKG Documentation Completion [RC] STAT Oxygen Therapy, ED [RC] ASDIRECTED Pulse Oximetry [RC] ASDIRECTED Chest 1V Frontal [CR] Stat Head wo Cont [CT] Stat Sodium Chloride 0.9% [Saline Flush] 10 ml FLUSH ASDIRECTED PRN Sodium Chloride 0.9% [Saline Flush] 2.5 ml FLUSH ASDIRECTED PRN Saline Lock Insert [OM.PC] Stat 10/15/17 22:25 Blood Culture x2 Reflex Set [OM.PC] Stat 10/15/17 22:39 CULTURE BLOOD [BC] Stat 10/15/17 22:48 CULTURE BLOOD [BC] Stat 10/16/17 00:00 Sodium Chloride 0.9% [Normal Saline] 1,000 ml IV ASDIRECTED 10/16/17 00:33 Patient Status [ADT] Stat - Assessment/Plan Last 24 Hours: My Active Orders 10/15/17 22:11 Cardiac Monitoring [RC] . DIRECTED EKG Documentation Completion [RC] STAT Oxygen Therapy, ED [RC] ASDIRECTED Pulse Oximetry [RC] ASDIRECTED Chest 1V Frontal [CR] Stat Head wo Cont [CT] Stat Sodium Chloride 0.9% [Saline Flush] 10 ml FLUSH ASDIRECTED PRN Sodium Chloride 0.9% [Saline Flush] 2.5 ml FLUSH ASDIRECTED PRN Saline Lock Insert [OM.PC] Stat 10/15/17 22:25 Blood Culture x2 Reflex Set [OM.PC] Stat 10/15/17 22:39 CULTURE BLOOD [BC] Stat 10/15/17 22:48 CULTURE BLOOD [BC] Stat 10/16/17 00:00 Sodium Chloride 0.9% [Normal Saline] 1,000 ml IV ASDIRECTED 10/16/17 00:33 Patient Status [ADT] Stat
[2017-10-15] MEDS ORDERED: Acetaminophen 325 MG Tab PO ONE (22:25)
[2017-10-15 22:57] LABS: CHLORIDE,CL 102 mmol/L (98-110); SODIUM,NA 134 mmol/L (136-146)
[2017-10-15] MEDS ORDERED: cefTRIAXone 1 GM in Premix Bag 1 BAG IV ONE (23:48)
[2017-10-15] MEDS ORDERED: Piperacillin/Tazobactam 3.375 GM in Sodium Chloride 0.9% 50 ML IV ONE (23:48)
[2017-10-16] MEDS ORDERED: Sodium Chloride 0.9% 1,000 ML IV SCH
[2017-10-16] MEDS ORDERED: Acetaminophen 500 MG Tab PO PRN (01:45)
[2017-10-16] MEDS ORDERED: LORazepam 2 MG/ML SDV IVPUSH PRN (01:45)
[2017-10-16] MEDS ORDERED: Sodium Chloride 0.9% 2.5 ML Syringe FLUSH PRN (01:45)
[2017-10-16] MEDS ORDERED: Albuterol/Ipratropium 3.0-0.5 MG/3 ML Neb Soln NEB PRN (01:45)
[2017-10-16] MEDS ORDERED: Levofloxacin/Dextrose 5%-Water 150 ML IV ONE (04:05)
[2017-10-16] MEDS: Levofloxacin/Dextrose 5%-Water 750 MG in Premix Bag 1 BAG IV SCH (06:46)
--- NOTE | 2017-10-16 09:00 | PCM.HP ---
H&P History of Present Illness - General Date of Service: 10/16/17 Admit Problem/Dx: Admission Diagnosis/Problem Admission Diagnosis/Problem Pneumonia - History of Present Illness Initial Comments - Free Text/Narative: 72-year-old male with history of diabetes, cardiac stent in 1995, hypertension, hypercholesterolemia and hypothyroidism who presented via EMS for complaints of nausea and vomiting x one day. He continued to feel nauseated. In the ED he had elevated white count 12.51. UA negative. CXR showed right upper lobe infiltration. Head CT negative He was given zosyn, Rocephin along with IVF bolus. One admission his wbc is 12.28. He complains of fatigue and drowsiness. He does not have fever, productive cough, abdominal pain , vomiting, chest pain, SOB, headache or other pertinent symptoms. - Related Data Allergies/Adverse Reactions: Allergies Allergy/AdvReac Type Severity Reaction Status Date / Time No Known Allergies Allergy Verified 10/15/17 22:28 Home Medications: Home Meds Aspirin 325 mg PO DAILY 04/17/17 [History] Gemfibrozil 600 mg PO DAILY 04/17/17 [History] Levothyroxine 1.75 mcg PO ACBREAKFAST 04/17/17 [History] Lisinopril 5 mg PO DAILY 04/17/17 [History] Metoprolol Succinate [Toprol XL] 25 mg PO DAILY 04/17/17 [History] Simvastatin [Zocor] 20 mg PO BEDTIME 04/17/17 [History] Tamsulosin [Flomax] 0.4 mg PO BEDTIME 04/17/17 [History] Zolpidem [Ambien] 10 mg PO BEDTIME 04/17/17 [History] sitaGLIPtin Phos/Metformin HCl [Janumet 50-1,000 MG] 1,000 mg PO DAILY 04/17/17 [History] Canagliflozin [Invokana] 300 mg DAILY 05/09/17 [History] Sertraline [Zoloft] 25 mg DAILY 05/09/17 [History] Isomethept/Dichlphn/Acetaminop [Mavdjhvysg-Usclpknpkx-Klmwrlsa] 1 each PO ASDIRECTED PRN 10/15/17 [History] Past Medical History Cardiovascular History: Reports: Angina, High Cholesterol, Hypertension, Stents Respiratory History: Reports: Sleep Apnea Gastrointestinal History: Reports: Diverticulosis Genitourinary History: Reports: BPH Musculoskeletal History: Reports: RA Neurological History: Reports: Migraines Psychiatric History: Reports: Depression Endocrine/Metabolic History: Reports: Diabetes, Type II Oncologic (Cancer) History: Reports: Thyroid - Infectious Disease History Infectious Disease History: Reports: Chicken Pox, Measles, Mumps - Past Surgical History Head Surgeries/Procedures: Reports: None HEENT Surgical History: Reports: Tonsillectomy Other HEENT Surgeries/Procedures: dental surgery Cardiovascular Surgical History: Reports: Coronary Artery Stent GI Surgical History: Reports: Cholecystectomy Endocrine Surgical History: Reports: Thyroidectomy Musculoskeletal Surgical History: Reports: Shoulder Replacement Social & Family History - Family History Family Medical History: Noncontributory - Tobacco Use Smoking Status *Q: Never Smoker Used Tobacco, but Quit: Yes Month Tobacco Last Used: 1969 Second Hand Smoke Exposure: No - Caffeine Use Caffeine Use: Reports: None Caffeine Use Comment: 2cups/day - Alcohol Use Days Per Week of Alcohol Use: 0 - Recreational Drug Use Recreational Drug Use: No H&P Review of Systems - Review of Systems: Review Of Systems: See Below General: Reports: Weakness, Fatigue HEENT: Reports: No Symptoms Pulmonary: Reports: No Symptoms Cardiovascular: Reports: No Symptoms Gastrointestinal: Reports: Other (nausea). Denies: Vomiting Musculoskeletal: Reports: No Symptoms Skin: Reports: No Symptoms Psychiatric: Reports: No Symptoms Neurological: Reports: No Symptoms Exam - Exam Exam: See Below - Vital Signs Vital Signs: Last Vital Signs Temp 97.7 F 10/16/17 08:00 Pulse 67 10/16/17 08:00 Resp 20 10/16/17 08:00 BP 136/61 10/16/17 08:00 Pulse Ox 97 10/16/17 08:00 Weight: 89 kg - Exam General: Alert, Oriented HEENT: Conjunctiva Clear, EOMI Neck: Supple, Trachea Midline Lungs: Decreased Breath Sounds. No: Crackles, Rales, Wheezing Cardiovascular: Regular Rate, Regular Rhythm GI/Abdominal Exam: Normal Bowel Sounds, Soft Back Exam: Normal Inspection, Full Range of Motion Extremities: Normal Inspection, Normal Range of Motion Skin: Warm, Dry, Intact Neurological: Cranial Nerves Intact Psychiatric: Alert, Normal Affect, Normal Mood - Patient Data Lab Results Last 24 hrs: Laboratory Results - last 24 hr 10/16/17 10/16/17 Range/Units 05:02 05:02 WBC 12.28 H (4.0-11.0) K/uL RBC 4.56 (4.50-5.90) M/uL Hgb 13.4 (13.0-17.0) g/dL Hct 39.3 (38.0-50.0) % MCV 86.2 (80.0-98.0) fL MCH 29.4 (27.0-32.0) pg MCHC 34.1 (31.0-37.0) g/dL RDW Std Deviation 41.5 (28.0-62.0) fl RDW Coeff of Kalin 13 (11.0-15.0) % Plt Count 191 (150-400) K/uL MPV 9.00 (7.40-12.00) fL Neut % (Auto) 72.9 (48.0-80.0) % Lymph % (Auto) 17.9 (16.0-40.0) % [place] % (Auto) 8.4 (0.0-15.0) % Eos % (Auto) 0.6 (0.0-7.0) % Baso % (Auto) 0.2 (0.0-1.5) % Neut # (Auto) 9.0 H (1.4-5.7) K/uL Lymph # (Auto) 2.2 (0.6-2.4) K/uL [place] # (Auto) 1.0 H (0.0-0.8) K/uL Eos # (Auto) 0.1 (0.0-0.7) K/uL Baso # (Auto) 0.0 (0.0-0.1) K/uL Nucleated RBC % 0.0 /100WBC Nucleated RBCs # 0 K/uL Sodium 135 L (136-146) mmol/L Potassium 3.5 (3.5-5.1) mmol/L Chloride 104 (98-110) mmol/L Carbon Dioxide 21 (21-31) mmol/L BUN 21 (6.0-23.0) mg/dL Creatinine 1.3 (0.6-1.5) mg/dL Est Cr Clr Drug Dosing 47.42 mL/min Estimated GFR (MDRD) 54.0 ml/min Glucose 141 H (60-110) mg/dL Calcium 8.7 L (8.8-10.8) mg/dL Magnesium 1.3 L (1.5-2.3) mEq/L Result Diagrams: 10/16/17 05:02 10/16/17 05:02 *Q Meaningful Use (ADM) - VTE *Q VTE Criteria *Q: - Stroke *Q Stroke Criteria *Q: - AMI *Q AMI Criteria *Q: Problem List Initiated/Reviewed/Updated: Yes Orders Last 24hrs: Active Orders 24 hr Category Date Time Status RT Aerosol Therapy [RC] ASDIRECTED Care 10/16/17 01:46 Active [place] [employer] Diet [DIET] Diet 10/16/17 Breakfast Active BASIC METABOLIC PANEL,BMP [CHEM] DAILY Lab 10/17/17 05:00 Ordered BASIC METABOLIC PANEL,BMP [CHEM] DAILY Lab 10/18/17 05:00 Ordered CBC WITH AUTO DIFF [HEME] DAILY Lab 10/17/17 05:00 Ordered CBC WITH AUTO DIFF [HEME] DAILY Lab 10/18/17 05:00 Ordered Acetaminophen [Tylenol Extra Strength] Med 10/16/17 01:45 Active 500 mg PO Q4H PRN Albuterol/Ipratropium [DuoNeb 3.0-0.5 MG/3 ML] Med 10/16/17 01:45 Active 3 ml NEB Q4HRRT PRN LORazepam [Ativan] Med 10/16/17 01:45 Active 0.5 mg IVPUSH Q4H PRN Levofloxacin/Dextrose 5%-Water [Levaquin in D5W 750 MG/ Med 10/16/17 04:00 Active 150 ML] 750 mg Premix Bag 1 bag IV Q24H Ondansetron [Zofran] Med 10/16/17 01:45 Active 4 mg IVPUSH Q4H PRN Sodium Chloride 0.9% [Saline Flush] Med 10/16/17 01:45 Active 2.5 ml FLUSH ASDIRECTED PRN Resuscitation Status Routine Resus Stat 10/16/17 01:45 Ordered Medication Orders Acetaminophen (Tylenol Extra Strength) 500 mg PO Q4H PRN PRN Reason: Pain/Fever Albuterol/Ipratropium (Duoneb 3.0-0.5 Mg/3 Ml) 3 ml NEB Q4HRRT PRN PRN Reason: Wheezing Levofloxacin/Dextrose 750 mg/ (Premix) 150 mls @ 100 mls/hr IV Q24H DENY Last Admin: 10/16/17 06:46 Dose: Lorazepam (Ativan) 0.5 mg IVPUSH Q4H PRN PRN Reason: Agitation Ondansetron HCl (Zofran) 4 mg IVPUSH Q4H PRN PRN Reason: Nausea/Vomiting Sodium Chloride (Saline Flush) 10 ml FLUSH ASDIRECTED PRN PRN Reason: Keep Vein Open Last Admin: 10/15/17 22:29 Dose: 10 ml Sodium Chloride (Saline Flush) 2.5 ml FLUSH ASDIRECTED PRN PRN Reason: Keep Vein Open Last Admin: 10/15/17 22:29 Dose: 2.5 ml Sodium Chloride (Saline Flush) 2.5 ml FLUSH ASDIRECTED PRN PRN Reason: Keep Vein Open Assessment/Plan Comment:: 72 yo male admitted for right upper lobe pneumonia start levaquin zofran prn Duo nebs prn ADA diet Hypomagnesium: replaced mag today. resume home medications.
[2017-10-16] MEDS ORDERED: Magnesium Sulfate/Water 2 GM in Premix Bag 1 BAG IV ONE (09:37)
--- NOTE | 2017-10-16 10:31 | CT ---
EXAM DATE: 10/16/17 PATIENT'S AGE: 72 Patient: SANGEETA DOMINGO Facility: [place], [place] Site . Site : 1945 Study: CT Head [id number]/[id number] 11:22:37 PM Ordering Physician: Doctor Menjivar Final Report: INDICATION: Weakness TECHNIQUE: CT Head without contrast. COMPARISON: None. FINDINGS: There is no sign of intracranial hemorrhage or mass effect. 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 Stable nonspecific calcification along the right transverse sinus. The billy-white differentiation is preserved. Stable right arachnoid cyst anterior to the left temporal lobe. No acute disease of the visualized paranasal sinuses and mastoid air cells. No fracture evident. No scalp hematoma/laceration. IMPRESSION: No acute intracranial process. Dictated by: Lenard Ruth MD @ 10/15/2017 23:31:46 (Electronic Signature) Report Signed by Proxy. [facility]ITAL[facility]
--- NOTE | 2017-10-16 10:32 | CR ---
EXAM DATE: 10/16/17 PATIENT'S AGE: 72 [facility] Facility: [place], [place] Site . Site : 1945 Study: XRay Chest [id number]/6/2017 11:23:07 PM Ordering Physician: Doctor Menjivar Final Report: Indication: Weakness Technique: Chest 1 view. Comparison: May 09, 2027 Findings: Stable cardiomediastinal silhouette. Lung volumes are low. New patchy opacity in the right upper lobe. No effusion or pneumothorax. No acute osseous abnormality. Status post left shoulder arthroplasty. Impression: New patchy opacity in the right upper lobe may represent atelectasis or infection. Dictated by Juany Mai MD @ Oct 15 2017 11:30PM (Electronic Signature) Report Signed by Proxy. EDI
[2017-10-16] MEDS: Ondansetron 4 MG/2 ML SDV IVPUSH PRN (16:15)
[2017-10-16] MEDS: Simvastatin 20 MG Tab PO SCH (21:30)
[2017-10-16] MEDS: Temazepam 15 MG Cap PO SCH (21:30)
[2017-10-16] MEDS: Tamsulosin 0.4 MG Cap.ER PO SCH (21:30)
[2017-10-17] MEDS: Levofloxacin/Dextrose 5%-Water 750 MG in Premix Bag 1 BAG IV SCH (04:17)
[2017-10-17] MEDS: Gemfibrozil 600 MG Tab PO SCH (06:38)
[2017-10-17] MEDS ORDERED: Magnesium Sulfate/Water 2 GM in Premix Bag 1 BAG IV ONE (08:28)
[2017-10-17] MEDS: metFORMIN 500 MG Tab PO SCH (10:02)
[2017-10-17] MEDS: Levothyroxine 75 MCG Tab PO SCH (10:02)
[2017-10-17] MEDS: Aspirin 325 MG Tab PO SCH (10:02)
[2017-10-17] MEDS: Levothyroxine 100 MCG Tab PO SCH (10:03)
[2017-10-17] MEDS: Sertraline 25 MG Tab PO SCH (10:03)
[2017-10-17] MEDS: Lisinopril 5 MG Tab PO SCH (10:03)
[2017-10-17] MEDS: Metoprolol Succinate 25 MG Tab.ER PO SCH (10:06)
--- NOTE | 2017-10-17 10:32 | PCM.PN ---
- General Info Date of Service: 10/17/17 Functional Status: Reports: Tolerating Diet, Ambulating, Urinating - Review of Systems General: Reports: No Symptoms HEENT: Reports: No Symptoms Pulmonary: Reports: No Symptoms Cardiovascular: Reports: No Symptoms Gastrointestinal: Reports: No Symptoms Genitourinary: Reports: No Symptoms Musculoskeletal: Reports: No Symptoms Skin: Reports: No Symptoms Neurological: Reports: No Symptoms Psychiatric: Reports: Confusion - Patient Data Vitals - Most Recent: Last Vital Signs Temp 98.5 F 10/17/17 05:00 Pulse 84 10/17/17 10:06 Resp 18 10/17/17 05:00 BP 142/83 H 10/17/17 10:06 Pulse Ox 95 10/17/17 05:00 Weight - Most Recent: 89 kg I&O - Last 24 Hours: Intake & Output 10/16/17 10/17/17 10/17/17 22:59 06:59 14:59 Intake Total 938 300 Output Total 1250 1050 Balance -312 -750 Lab Results Last 24 Hours: Laboratory Results - last 24 hr 10/17/17 10/17/17 10/17/17 Range/Units 05:10 05:10 05:10 WBC 9.93 (4.0-11.0) K/uL RBC 4.75 (4.50-5.90) M/uL Hgb 14.0 (13.0-17.0) g/dL Hct 40.4 (38.0-50.0) % MCV 85.1 (80.0-98.0) fL MCH 29.5 (27.0-32.0) pg MCHC 34.7 (31.0-37.0) g/dL RDW Std Deviation 39.8 (28.0-62.0) fl RDW Coeff of Kalin 13 (11.0-15.0) % Plt Count 189 (150-400) K/uL MPV 9.00 (7.40-12.00) fL Neut % (Auto) 67.7 (48.0-80.0) % Lymph % (Auto) 21.3 (16.0-40.0) % [place] % (Auto) 9.6 (0.0-15.0) % Eos % (Auto) 1.3 (0.0-7.0) % Baso % (Auto) 0.1 (0.0-1.5) % Neut # (Auto) 6.7 H (1.4-5.7) K/uL Lymph # (Auto) 2.1 (0.6-2.4) K/uL [place] # (Auto) 1.0 H (0.0-0.8) K/uL Eos # (Auto) 0.1 (0.0-0.7) K/uL Baso # (Auto) 0.0 (0.0-0.1) K/uL Nucleated RBC % 0.0 /100WBC Nucleated RBCs # 0 K/uL Sodium 136 (136-146) mmol/L Potassium 3.5 (3.5-5.1) mmol/L Chloride 103 (98-110) mmol/L Carbon Dioxide 20 L (21-31) mmol/L BUN 22 (6.0-23.0) mg/dL Creatinine 1.2 (0.6-1.5) mg/dL Est Cr Clr Drug Dosing 51.06 mL/min Estimated GFR (MDRD) 59.2 ml/min Glucose 126 H (60-110) mg/dL Calcium 9.2 (8.8-10.8) mg/dL Magnesium 1.7 (1.5-2.3) mEq/L Med Orders - Current: Current Medications Acetaminophen (Tylenol Extra Strength) 500 mg PO Q4H PRN PRN Reason: Pain/Fever Albuterol/Ipratropium (Duoneb 3.0-0.5 Mg/3 Ml) 3 ml NEB Q4HRRT PRN PRN Reason: Wheezing Aspirin (Aspirin) 325 mg PO DAILY [facility] Last Admin: 10/17/17 10:02 Dose: 325 mg Gemfibrozil (Lopid) 600 mg PO ACBREAKFAST [facility] Last Admin: 10/17/17 06:38 Dose: 600 mg Levofloxacin/Dextrose 750 mg/ (Premix) 150 mls @ 100 mls/hr IV Q24H [facility] Last Admin: 10/17/17 04:17 Dose: 100 mls/hr Levothyroxine Sodium (Synthroid) 100 mcg PO ACBREAKFAST [facility] Last Admin: 10/17/17 10:03 Dose: 100 mcg Levothyroxine Sodium (Levothyroxine) 75 mcg PO ACBREAKFAST [facility] Last Admin: 10/17/17 10:02 Dose: 75 mcg Lisinopril (Prinivil) 5 mg PO DAILY [facility] Last Admin: 10/17/17 10:03 Dose: 5 mg Lorazepam (Ativan) 0.5 mg IVPUSH Q4H PRN PRN Reason: Agitation Metformin HCl (Glucophage) 1,000 mg PO DAILY [facility] Last Admin: 10/17/17 10:02 Dose: 500 mg Metoprolol Succinate (Toprol Xl) 25 mg PO DAILY [facility] Last Admin: 10/17/17 10:06 Dose: 25 mg Ondansetron HCl (Zofran) 4 mg IVPUSH Q4H PRN PRN Reason: Nausea/Vomiting Last Admin: 10/16/17 16:15 Dose: 4 mg Invokana 300 Mg 1 each PO DAILY [facility] Sertraline HCl (Zoloft) 25 mg PO DAILY [facility] Last Admin: 10/17/17 10:03 Dose: 25 mg Simvastatin (Zocor) 20 mg PO BEDTIME [facility] Last Admin: 10/16/17 21:30 Dose: 20 mg Sitagliptin Phosphate (Januvia) 50 mg PO DAILY [facility] Last Admin: 10/17/17 10:02 Dose: 50 mg Sodium Chloride (Saline Flush) 10 ml FLUSH ASDIRECTED PRN PRN Reason: Keep Vein Open Last Admin: 10/15/17 22:29 Dose: 10 ml Sodium Chloride (Saline Flush) 2.5 ml FLUSH ASDIRECTED PRN PRN Reason: Keep Vein Open Last Admin: 10/15/17 22:29 Dose: 2.5 ml Sodium Chloride (Saline Flush) 2.5 ml FLUSH ASDIRECTED PRN PRN Reason: Keep Vein Open Tamsulosin HCl (Flomax) 0.4 mg PO BEDTIME [facility] Last Admin: 10/16/17 21:30 Dose: 0.4 mg Temazepam (Restoril) 15 mg PO BEDTIME [facility] Last Admin: 10/16/17 21:30 Dose: 15 mg Discontinued Medications Acetaminophen (Tylenol) 650 mg PO NOW ONE Stop: 10/15/17 22:26 Last Admin: 10/15/17 22:29 Dose: 650 mg Diphenhydramine HCl (Benadryl) 25 mg IVPUSH ONETIME ONE Stop: 10/15/17 22:12 Last Admin: 10/15/17 22:29 Dose: 25 mg Sodium Chloride (Normal Saline) 1,000 mls @ 999 mls/hr IV STAT ONE Stop: 10/15/17 23:11 Last Admin: 10/15/17 22:29 Dose: 999 mls/hr Ceftriaxone Sodium/Dextrose 1 (gm/ Premix) 50 mls @ 100 mls/hr IV ONETIME ONE Stop: 10/16/17 00:17 Last Admin: 10/16/17 00:27 Dose: 100 mls/hr Piperacillin Sod/Tazobactam (Sod 3.375 gm/ Sodium Chloride) 50 mls @ 100 mls/ hr IV ONETIME ONE Stop: 10/16/17 00:17 Last Admin: 10/15/17 23:59 Dose: 100 mls/hr Sodium Chloride (Normal Saline) 1,000 mls @ 75 mls/hr IV ASDIRECTED [facility] Last Admin: 10/16/17 00:02 Dose: 75 mls/hr Levofloxacin/Dextrose (Levaquin In D5w 750 Mg/150 Ml) Confirm Administered Dose 150 mls @ as directed IV .STK-MED ONE Stop: 10/16/17 04:06 Last Admin: 10/16/17 04:37 Dose: 750 mg Magnesium Sulfate 2 gm/ Premix 50 mls @ 50 mls/hr IV ONETIME ONE Stop: 10/16/17 10:36 Last Admin: 10/16/17 10:00 Dose: 50 mls/hr Magnesium Sulfate 2 gm/ Premix 50 mls @ 50 mls/hr IV ONETIME ONE Stop: 10/17/17 09:27 - Exam General: Alert, Cooperative HEENT: Pupils Equal, EOMI Neck: Supple, Trachea Midline Lungs: Decreased Breath Sounds Cardiovascular: Regular Rate, Regular Rhythm GI/Abdominal Exam: Normal Bowel Sounds, Soft Extremities: Normal Inspection Skin: Warm, Dry, Intact Psy/Mental Status: Alert, Normal Affect, Normal Mood - Problem List Review Problem List Initiated/Reviewed/Updated: Yes - Plan Plan:: 72 yo male admitted for right upper lobe pneumonia: improving WBC wnl. levaquin zofran prn Duo nebs prn ADA diet anticipate discharge 1 day.
[2017-10-17] MEDS: Ondansetron 4 MG/2 ML SDV IVPUSH PRN (13:35)
[2017-10-17] MEDS: Simvastatin 20 MG Tab PO SCH (20:53)
[2017-10-17] MEDS: Temazepam 15 MG Cap PO SCH (20:53)
[2017-10-17] MEDS: Tamsulosin 0.4 MG Cap.ER PO SCH (20:53)
[2017-10-18] MEDS: Levofloxacin/Dextrose 5%-Water 750 MG in Premix Bag 1 BAG IV SCH (03:11)
[2017-10-18] MEDS: Ondansetron 4 MG/2 ML SDV IVPUSH PRN (05:02)
[2017-10-18] MEDS: Levothyroxine 100 MCG Tab PO SCH (06:30)
[2017-10-18] MEDS: Levothyroxine 75 MCG Tab PO SCH (06:31)
[2017-10-18] MEDS: Gemfibrozil 600 MG Tab PO SCH (06:31)
[2017-10-18] MEDS: metFORMIN 500 MG Tab PO SCH (08:02)
[2017-10-18] MEDS: Aspirin 325 MG Tab PO SCH (08:02)
[2017-10-18] MEDS: Sertraline 25 MG Tab PO SCH (08:02)
[2017-10-18] MEDS: Lisinopril 5 MG Tab PO SCH (08:10)
[2017-10-18] MEDS: Metoprolol Succinate 25 MG Tab.ER PO SCH (08:10)
--- NOTE | 2017-10-18 10:28 | PCM.DCSUM1 ---
Discharge Summary - Hospital Course Free Text/Narrative:: 72 yo who lives with his son admitted for dehydration and right upper lobe pneumonia. CXR showed right upper lobe consolidation. His WBC wwas 12.51. He was treated with I.V levaquin. He clinically improved. He had mild loose stool which I observed that had normal appearance. His wbc 9.35. He is discharged in stable condition with levaquin 500 mg po qd x 7 more days. He is to resume home medications and follow up with PCP. - Discharge Data Discharge Date: 10/18/17 Discharge Disposition: Home, Self-Care 01 Condition: Stable - Patient Instructions Diet: Diabetic Diet Activity: As Tolerated Driving: Do Not Drive Showering/Bathing: May Shower Notify Provider of: Fever, Increased Pain, Swelling and Redness, Drainage, Nausea and/or Vomiting - Discharge Plan Prescriptions/Med Rec: Levofloxacin [Levaquin] 500 mg PO DAILY #7 tablet Home Medications: Home Meds Aspirin 325 mg PO DAILY 04/17/17 [History] Gemfibrozil 600 mg PO DAILY 04/17/17 [History] Levothyroxine 175 mcg PO ACBREAKFAST 04/17/17 [History] Lisinopril 5 mg PO DAILY 04/17/17 [History] Metoprolol Succinate [Toprol XL] 25 mg PO DAILY 04/17/17 [History] Simvastatin [Zocor] 20 mg PO BEDTIME 04/17/17 [History] Tamsulosin [Flomax] 0.4 mg PO BEDTIME 04/17/17 [History] Zolpidem [Ambien] 10 mg PO BEDTIME 04/17/17 [History] sitaGLIPtin Phos/Metformin HCl [Janumet 50-1,000 MG] 1,000 mg PO DAILY 04/17/17 [History] Canagliflozin [Invokana] 300 mg DAILY 05/09/17 [History] Sertraline [Zoloft] 25 mg DAILY 05/09/17 [History] Isomethept/Dichlphn/Acetaminop [Nmlobgzxwy-Xvbmhpnxsd-Udzysoce] 1 each PO ASDIRECTED PRN 10/15/17 [History] Levofloxacin [Levaquin] 500 mg PO DAILY #7 tablet 10/18/17 [Rx] Patient Handouts: Shortness of Breath, Lwfw-is-Nvap, Levofloxacin tablets, Community-Acquired Pneumonia, Adult, Yegu-os-Pitz - General Info Date of Service: 10/18/17 - Review of Systems General: Reports: No Symptoms HEENT: Reports: No Symptoms Pulmonary: Reports: No Symptoms Cardiovascular: Reports: No Symptoms Gastrointestinal: Reports: Other (loose stool resolved) Genitourinary: Reports: No Symptoms Musculoskeletal: Reports: No Symptoms Skin: Reports: No Symptoms Neurological: Reports: No Symptoms Psychiatric: Reports: No Symptoms - Patient Data Vitals - Most Recent: Last Vital Signs Temp 97 F 10/18/17 08:00 Pulse 64 10/18/17 08:10 Resp 18 10/18/17 08:00 BP 125/64 10/18/17 08:10 Pulse Ox 99 10/18/17 08:00 Weight - Most Recent: 89 kg I&O - Last 24 hours: Intake & Output 10/17/17 10/18/17 10/18/17 22:59 06:59 14:59 Intake Total 480 550 Output Total 970 Balance 480 -420 Lab Results - Last 24 hrs: Laboratory Results - last 24 hr 10/18/17 10/18/17 Range/Units 06:32 06:32 WBC 9.35 (4.0-11.0) K/uL RBC 4.66 (4.50-5.90) M/uL Hgb 13.8 (13.0-17.0) g/dL Hct 39.9 (38.0-50.0) % MCV 85.6 (80.0-98.0) fL MCH 29.6 (27.0-32.0) pg MCHC 34.6 (31.0-37.0) g/dL RDW Std Deviation 40.5 (28.0-62.0) fl RDW Coeff of Kalin 13 (11.0-15.0) % Plt Count 167 (150-400) K/uL MPV 9.00 (7.40-12.00) fL Neut % (Auto) 70.8 (48.0-80.0) % Lymph % (Auto) 17.1 (16.0-40.0) % [place] % (Auto) 9.5 (0.0-15.0) % Eos % (Auto) 2.4 (0.0-7.0) % Baso % (Auto) 0.2 (0.0-1.5) % Neut # (Auto) 6.6 H (1.4-5.7) K/uL Lymph # (Auto) 1.6 (0.6-2.4) K/uL [place] # (Auto) 0.9 H (0.0-0.8) K/uL Eos # (Auto) 0.2 (0.0-0.7) K/uL Baso # (Auto) 0.0 (0.0-0.1) K/uL Nucleated RBC % 0.0 /100WBC Nucleated RBCs # 0 K/uL Sodium 134 L (136-146) mmol/L Potassium 3.7 (3.5-5.1) mmol/L Chloride 104 (98-110) mmol/L Carbon Dioxide 20 L (21-31) mmol/L BUN 25 H (6.0-23.0) mg/dL Creatinine 1.2 (0.6-1.5) mg/dL Est Cr Clr Drug Dosing 51.06 mL/min Estimated GFR (MDRD) 59.2 ml/min Glucose 121 H (60-110) mg/dL Calcium 9.0 (8.8-10.8) mg/dL Med Orders - Current: Current Medications Acetaminophen (Tylenol Extra Strength) 500 mg PO Q4H PRN PRN Reason: Pain/Fever Last Admin: 10/17/17 18:10 Dose: 500 mg Albuterol/Ipratropium (Duoneb 3.0-0.5 Mg/3 Ml) 3 ml NEB Q4HRRT PRN PRN Reason: Wheezing Aspirin (Aspirin) 325 mg PO DAILY [facility] Last Admin: 10/18/17 08:02 Dose: 325 mg Gemfibrozil (Lopid) 600 mg PO ACBREAKFAST [facility] Last Admin: 10/18/17 06:31 Dose: 600 mg Levofloxacin/Dextrose 750 mg/ (Premix) 150 mls @ 100 mls/hr IV Q24H [facility] Last Admin: 10/18/17 03:11 Dose: 100 mls/hr Levothyroxine Sodium (Synthroid) 100 mcg PO ACBREAKFAST [facility] Last Admin: 10/18/17 06:30 Dose: 100 mcg Levothyroxine Sodium (Levothyroxine) 75 mcg PO ACBREAKFAST [facility] Last Admin: 12/09/17 06:31 Dose: 75 mcg Lisinopril (Prinivil) 5 mg PO DAILY [facility] Last Admin: 10/18/17 08:10 Dose: 5 mg Lorazepam (Ativan) 0.5 mg IVPUSH Q4H PRN PRN Reason: Agitation Metformin HCl (Glucophage) 1,000 mg PO DAILY [facility] Last Admin: 10/18/17 08:02 Dose: 1,000 mg Metoprolol Succinate (Toprol Xl) 25 mg PO DAILY [facility] Last Admin: 10/18/17 08:10 Dose: 25 mg Ondansetron HCl (Zofran) 4 mg IVPUSH Q4H PRN PRN Reason: Nausea/Vomiting Last Admin: 10/18/17 05:02 Dose: 4 mg Invokana 300 Mg 1 each PO DAILY [facility] Last Admin: 10/18/17 09:23 Dose: Not Given Sertraline HCl (Zoloft) 25 mg PO DAILY [facility] Last Admin: 10/18/17 08:02 Dose: 25 mg Simvastatin (Zocor) 20 mg PO BEDTIME [facility] Last Admin: 10/17/17 20:53 Dose: 20 mg Sitagliptin Phosphate (Januvia) 50 mg PO DAILY [facility] Last Admin: 10/18/17 08:02 Dose: 50 mg Sodium Chloride (Saline Flush) 10 ml FLUSH ASDIRECTED PRN PRN Reason: Keep Vein Open Last Admin: 10/15/17 22:29 Dose: 10 ml Sodium Chloride (Saline Flush) 2.5 ml FLUSH ASDIRECTED PRN PRN Reason: Keep Vein Open Last Admin: 10/15/17 22:29 Dose: 2.5 ml Sodium Chloride (Saline Flush) 2.5 ml FLUSH ASDIRECTED PRN PRN Reason: Keep Vein Open Tamsulosin HCl (Flomax) 0.4 mg PO BEDTIME [facility] Last Admin: 10/17/17 20:53 Dose: 0.4 mg Temazepam (Restoril) 15 mg PO BEDTIME [facility] Last Admin: 10/17/17 20:53 Dose: 15 mg Discontinued Medications Acetaminophen (Tylenol) 650 mg PO NOW ONE Stop: 10/15/17 22:26 Last Admin: 10/15/17 22:29 Dose: 650 mg Diphenhydramine HCl (Benadryl) 25 mg IVPUSH ONETIME ONE Stop: 10/15/17 22:12 Last Admin: 10/15/17 22:29 Dose: 25 mg Sodium Chloride (Normal Saline) 1,000 mls @ 999 mls/hr IV STAT ONE Stop: 10/15/17 23:11 Last Admin: 10/15/17 22:29 Dose: 999 mls/hr Ceftriaxone Sodium/Dextrose 1 (gm/ Premix) 50 mls @ 100 mls/hr IV ONETIME ONE Stop: 10/16/17 00:17 Last Admin: 10/16/17 00:27 Dose: 100 mls/hr Piperacillin Sod/Tazobactam (Sod 3.375 gm/ Sodium Chloride) 50 mls @ 100 mls/ hr IV ONETIME ONE Stop: 10/16/17 00:17 Last Admin: 10/15/17 23:59 Dose: 100 mls/hr Sodium Chloride (Normal Saline) 1,000 mls @ 75 mls/hr IV ASDIRECTED DENY Last Admin: 10/16/17 00:02 Dose: 75 mls/hr Levofloxacin/Dextrose (Levaquin In D5w 750 Mg/150 Ml) Confirm Administered Dose 150 mls @ as directed IV .STK-MED ONE Stop: 10/16/17 04:06 Last Admin: 10/16/17 04:37 Dose: 750 mg Magnesium Sulfate 2 gm/ Premix 50 mls @ 50 mls/hr IV ONETIME ONE Stop: 10/16/17 10:36 Last Admin: 10/16/17 10:00 Dose: 50 mls/hr Magnesium Sulfate 2 gm/ Premix 50 mls @ 50 mls/hr IV ONETIME ONE Stop: 10/17/17 09:27 Last Admin: 10/17/17 14:52 Dose: Not Given - Exam General: Reports: Alert, Oriented HEENT: Reports: Pupils Equal, EOMI Lungs: Reports: Decreased Breath Sounds. Denies: Crackles, Wheezing Cardiovascular: Reports: Regular Rate, Regular Rhythm GI/Abdominal Exam: Normal Bowel Sounds, Soft Back Exam: Reports: Normal Inspection, Full Range of Motion Extremities: Normal Inspection Skin: Reports: Warm, Dry, Intact Neurological: Reports: No New Focal Deficit Psy/Mental Status: Reports: Alert, Normal Affect, Normal Mood *Q Meaningful Use (DIS) - VTE *Q VTE Criteria *Q: - Stroke *Q Stroke Criteria *Q: - AMI *Q AMI Criteria *Q:
[2017-10-18 12:40] VITALS: BP 120/72
== END 2017-10-18 14:09 | disposition home or self-care (01) ==
LOC: MW.ED 22:06 → MW.MS 10-16 00:33
PROVIDERS: ADMIT Family Medicine; ATTEND Family Medicine
DX: J18.9 Pneumonia, unspecified organism (principal); E86.0 Dehydration; E11.9 Type 2 diabetes mellitus without complications; I10 Essential (primary) hypertension; E78.00 Pure hypercholesterolemia, unspecified; E03.9 Hypothyroidism, unspecified; E83.42 Hypomagnesemia; F32.9 Major depressive disorder, single episode, unspecified; K21.9 Gastro-esophageal reflux disease without esophagitis; Z90.89 Acquired absence of other organs; Z95.5 Presence of coronary angioplasty implant and graft; Z79.82 Long term (current) use of aspirin; Z79.899 Other long term (current) drug therapy; Z79.84 Long term (current) use of oral hypoglycemic drugs; Z90.49 Acquired absence of other specified parts of digestive tract; Z87.891 Personal history of nicotine dependence; Z96.612 Presence of left artificial shoulder joint
CPT/HCPCS: 36415; 70450; 71010; 80048; 80053; 81001; 82150; 83605; 83690; 83735; 84484; 85025; 87040; 93005; 96361; 96365; 96366; 96367; 96375; 96376; 99285; A9270; G0378; J0696; J1200; J1956; J2405; J2543; J3475; J7040; J7050; 99284

== ENCOUNTER 2018-04-27 13:17 | Observation (INO) | payer MEDICARE, OTHER ==
[2018-04-27] MEDS ORDERED: Sodium Chloride 0.9% 10 ML Syringe FLUSH PRN (15:00)
[2018-04-27] MEDS ORDERED: Sodium Chloride 0.9% 2.5 ML Syringe FLUSH PRN (15:00)
[2018-04-27] MEDS: Ampicillin 2 GM in Sodium Chloride 0.9% 100 ML IV SCH (19:31)
[2018-04-27] MEDS: Simvastatin 20 MG Tab PO SCH (21:19)
[2018-04-27] MEDS: Gemfibrozil 600 MG Tab PO SCH (21:19)
[2018-04-28] MEDS ORDERED: Ampicillin 2 GM in Sodium Chloride 0.9% 100 ML IV SCH (00:01)
[2018-04-28] MEDS: Lactated Ringers 1,000 ML IV SCH ×2 (00:39→18:28)
[2018-04-28] MEDS: Ampicillin 2 GM in Sodium Chloride 0.9% 100 ML IV SCH ×4 (00:40→19:44)
[2018-04-28] MEDS: Levothyroxine 112 MCG Tab PO SCH (06:59)
[2018-04-28] MEDS ORDERED: Lidocaine 2% 5 ML SDV ONE (07:26)
[2018-04-28] MEDS ORDERED: Propofol 200 MG/20 ML SDV ONE ×2 (07:26→09:15)
[2018-04-28] MEDS ORDERED: Midazolam 1 MG/ML 2 ML SDV ONE (07:26)
[2018-04-28] MEDS ORDERED: fentaNYL 100 MCG/2 ML SDV ONE (07:26)
[2018-04-28] MEDS ORDERED: ePHEDrine 50 MG/ML SDV ONE ×2 (07:29→08:54)
--- NOTE | 2018-04-28 07:34 | PCM.PREANE ---
Preanesthetic Assessment - Anesthesia/Transfusion/Family Hx Anesthesia History: Prior Anesthesia Without Reaction (Total shoulder, thyroidectomy) Family History of Anesthesia Reaction: No Transfusion History: No Prior Transfusion(s) - Review of Systems General: No Symptoms Pulmonary: No Symptoms Cardiovascular: No Symptoms Gastrointestinal: No Symptoms Neurological: No Symptoms Other: Reports: None - Physical Assessment NPO Status Date: 04/27/18 O2 Sat by Pulse Oximetry: 98 Respiratory Rate: 16 Vital Signs: Last Vital Signs Temp 36.4 C 04/28/18 04:00 Pulse 53 L 04/28/18 04:00 Resp 16 04/28/18 04:00 BP 94/46 L 04/28/18 04:00 Pulse Ox 98 04/28/18 04:00 Height: 1.7 m Weight: 93.667 kg ASA Class: 3 Mental Status: Alert & Oriented x3 Airway Class: Mallampati = 2 Dentition: Reports: Dentures (upper and lower) ROM/Head Extension: Full Lungs: Clear to Auscultation, Normal Respiratory Effort Cardiovascular: Regular Rate, Regular Rhythm - Lab Values: Laboratory Last Values WBC 6.96 K/uL (4.0-11.0) 04/27/18 18:55 RBC 4.16 M/uL (4.50-5.90) L 04/27/18 18:55 Hgb 12.4 g/dL (13.0-17.0) L 04/27/18 18:55 Hct 36.2 % (38.0-50.0) L 18 18:55 MCV 87.0 fL (80.0-98.0) 04/27/18 18:55 MCH 29.8 pg (27.0-32.0) 1818 18:55 MCHC 34.3 g/dL (31.0-37.0) 18 18:55 RDW Std Deviation 42.0 fl (28.0-62.0) 04/27/18 18:55 RDW Coeff of Kalin 13 % (11.0-15.0) 18 18:55 Plt Count 177 K/uL (150-400) 18 18:55 MPV 8.60 fL (7.40-12.00) 04/27/18 18:55 Neut % (Auto) 53.0 % (48.0-80.0) 04/27/18 18:55 Lymph % (Auto) 28.7 % (16.0-40.0) 04/27/18 18:55 [place] % (Auto) 10.9 % (0.0-15.0) 04/27/18 18:55 Eos % (Auto) 6.8 % (0.0-7.0) 04/27/18 18:55 Baso % (Auto) 0.6 % (0.0-1.5) 04/27/18 18:55 Neut # (Auto) 3.7 K/uL (1.4-5.7) 04/27/18 18:55 Lymph # (Auto) 2.0 K/uL (0.6-2.4) 04/27/18 18:55 [place] # (Auto) 0.8 K/uL (0.0-0.8) 04/27/18 18:55 Eos # (Auto) 0.5 K/uL (0.0-0.7) 04/27/18 18:55 Baso # (Auto) 0.0 K/uL (0.0-0.1) 04/27/18 18:55 Nucleated RBC % 0.0 /100WBC 04/27/18 18:55 Nucleated RBCs # 0 K/uL 04/27/18 18:55 Sodium 137 mmol/L (136-148) 04/27/18 18:55 Potassium 4.3 mmol/L (3.5-5.1) 04/27/18 18:55 Chloride 101 mmol/L (98-107) 04/27/18 18:55 Carbon Dioxide 28.2 mmol/L (21.0-32.0) 04/27/18 18:55 BUN 26 mg/dL (7.0-18.0) H 04/27/18 18:55 Creatinine 1.3 mg/dL (0.8-1.3) 04/27/18 18:55 Est Cr Clr Drug Dosing 46.61 mL/min 04/27/18 18:55 Estimated GFR (MDRD) 54.0 ml/min 18 18:55 Glucose 257 mg/dL (74-106) H 04/27/18 18:55 POC Glucose 139 mg/dL (60-110) H 04/28/18 06:12 Calcium 8.7 mg/dL (8.5-10.1) 04/27/18 18:55 - Allergies Allergies/Adverse Reactions: Allergies Allergy/AdvReac Type Severity Reaction Status Date / Time No Known Allergies Allergy Verified 04/27/18 14:58 - Anesthesia Plan Pre-Op Medication Ordered: None - Acknowledgements Anesthesia Type Planned: Spinal Pt an Appropriate Candidate for the Planned Anesthesia: Yes Alternatives and Risks of Anesthesia Discussed w Pt/Guardian: Yes Pt/Guardian Understands and Agrees with Anesthesia Plan: Yes Additional Comments: PMH: dm2, 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), on asa 325 qd, last dose 24 hr ago, last stress test nov 2016 in [place] , reportedly normal, recent urinary obstruction, CKD3 with creat of 1.3 and CrCl of 54, HTN, HLD, on thyroid replacement since thyroidectomy, Hx of RUL pneumonia in Oct 2017, remote hx of GABBY which resolved with 40# weight loss, hx of reiters arthritis, migraine, depression PreAnesthesia Questionnaire Cardiovascular History: Reports: Angina, High Cholesterol, Hypertension, Stents Respiratory History: Reports: Sleep Apnea Gastrointestinal History: Reports: Diverticulosis Genitourinary History: Reports: BPH, Urinary Incontinence Musculoskeletal History: Reports: RA Neurological History: Reports: Migraines Psychiatric History: Reports: Depression Endocrine/Metabolic History: Reports: Diabetes, Type II Oncologic (Cancer) History: Reports: Thyroid - Infectious Disease History Infectious Disease History: Reports: Chicken Pox, Measles, Mumps - Past Surgical History Head Surgeries/Procedures: Reports: None HEENT Surgical History: Reports: Tonsillectomy Other HEENT Surgeries/Procedures: dental surgery Cardiovascular Surgical History: Reports: Coronary Artery Stent Endocrine Surgical History: Reports: Thyroidectomy Musculoskeletal Surgical History: Reports: Shoulder Replacement - SUBSTANCE USE Smoking Status *Q: Former Smoker Tobacco Use Within Last Twelve Months: No Second Hand Smoke Exposure: No Days Per Week of Alcohol Use: 1 Number of Drinks Per Day: 1 Total Drinks Per Week: 1 Recreational Drug Use History: No - HOME MEDS Home Medications: Home Meds Aspirin 325 mg PO DAILY 04/17/17 [History] Gemfibrozil 600 mg PO BID 04/17/17 [History] Levothyroxine 112 mcg PO ACBREAKFAST 04/17/17 [History] Metoprolol Succinate [Toprol XL] 25 mg PO DAILY 04/17/17 [History] Simvastatin [Zocor] 20 mg PO BEDTIME 04/17/17 [History] Tamsulosin [Flomax] 0.4 mg PO BEDTIME 04/17/17 [History] Sertraline [Zoloft] 50 mg PO DAILY 05/09/17 [History] Doxycycline [Doxycycline Hyclate] 100 mg PO Q12HR 04/27/18 [History] Eszopiclone 1 mg PO BEDTIME PRN 04/27/18 [History] SitaGLIPtin [Januvia] 100 mg PO BEDTIME 04/27/18 [History] amLODIPine [Norvasc] 2.5 mg PO DAILY 04/27/18 [History] - CURRENT (IN HOUSE) MEDS Current Meds: Current Medications Amlodipine Besylate (Norvasc) 2.5 mg PO DAILY [facility] Eszopiclone (Lunesta) 1 mg PO BEDTIME PRN PRN Reason: Insomnia Gemfibrozil (Lopid) 600 mg PO BID [facility] Last Admin: 04/27/18 21:19 Dose: 600 mg Lactated Ringer's (Ringers, Lactated) 1,000 mls @ 100 mls/hr IV ASDIRECTED [facility] Last Admin: 04/28/18 00:39 Dose: 100 mls/hr Tobramycin 120 mg/ Sodium (Chloride) 103 mls @ 103 mls/hr IV Q12H [facility] Last Admin: 04/28/18 02:46 Dose: 103 mls/hr Ampicillin Sodium 2 gm/ Sodium (Chloride) 100 mls @ 200 mls/hr IV Q6H [facility] Last Admin: 04/28/18 06:59 Dose: 200 mls/hr Levothyroxine Sodium (Levothyroxine) 112 mcg PO ACBREAKFAST [facility] Last Admin: 04/28/18 06:59 Dose: 112 mcg Metoprolol Succinate (Toprol Xl) 25 mg PO DAILY [facility] Sertraline HCl (Zoloft) 50 mg PO DAILY [facility] Simvastatin (Zocor) 20 mg PO BEDTIME [facility] Last Admin: 04/27/18 21:19 Dose: 20 mg Sitagliptin Phosphate (Januvia) 100 mg PO BEDTIME [facility] Last Admin: 04/27/18 21:19 Dose: 100 mg Sodium Chloride (Saline Flush) 10 ml FLUSH ASDIRECTED PRN PRN Reason: Keep Vein Open Sodium Chloride (Saline Flush) 2.5 ml FLUSH ASDIRECTED PRN PRN Reason: Keep Vein Open Discontinued Medications Ampicillin Sodium 2 gm/ Sodium (Chloride) 100 mls @ 200 mls/hr IV ONCALL DENY
[2018-04-28] MEDS ORDERED: fentaNYL 250 MCG/5 ML SDV ONE (08:47)
[2018-04-28] MEDS ORDERED: fentaNYL 100 MCG/2 ML SDV IVPUSH PRN (09:17)
[2018-04-28] MEDS ORDERED: Ondansetron 4 MG/2 ML SDV ONE (09:49)
--- NOTE | 2018-04-28 10:11 | PCM.POSTAN ---
POST ANESTHESIA ASSESSMENT - MENTAL STATUS Mental Status: Alert, Oriented - RESPIRATORY Respiratory Status: Respiratory Rate WNL, Airway Patent, O2 Saturation Stable - CARDIOVASCULAR CV Status: Pulse Rate WNL, Blood Pressure Stable - GASTROINTESTINAL GI Status: No Symptoms - PAIN Pain Score: 0 - POST OP HYDRATION Hydration Status: Adequate & Stable
--- NOTE | 2018-04-28 11:21 | OR ---
SURGEON: Rowan Curry M.D. DATE OF PROCEDURE: 04/28/2018 PREOPERATIVE DIAGNOSIS: Urinary retention. POSTOPERATIVE DIAGNOSIS: Urinary retention. OPERATION: TURP. DESCRIPTION OF THE PROCEDURE: Patient was given general anesthesia, he was placed in the dorsal lithotomy position, prepped and draped in sterile drapes. The 26 resectoscope was introduced in the bladder without difficulty. The prostate was resected in the usual manner starting with the floor, going on laterally and anteriorly. At the end of the resection, all prostatic chips were removed. Both the ureteral orifices were intact. The area of external sphincter was intact. A 22 three- way Vargas catheter with 35 mL in the balloon was left in the bladder connected to the TUR drip. Estimated blood loss under 200 mL. The patient tolerated the procedure well and was moved to recovery room in good condition. GATITO / NITZA /[id number]
[2018-04-28] MEDS: Gemfibrozil 600 MG Tab PO SCH ×2 (11:38→21:00)
[2018-04-28] MEDS: Metoprolol Succinate 25 MG Tab.ER PO SCH (11:38)
[2018-04-28] MEDS: Sertraline 100 MG Tab PO SCH (11:39)
[2018-04-28] MEDS: amLODIPine 2.5 MG Tab PO SCH (11:39)
[2018-04-28] MEDS: Ondansetron 4 MG/2 ML SDV IVPUSH PRN ×2 (14:17→19:46)
--- NOTE | 2018-04-28 17:03 | PCM48HPAN ---
Post Anesthesia Note - EVALUATION WITHIN 48HRS OF ANESTHETIC Vital Signs in Normal Range: Yes Patient Participated in Evaluation: Yes Respiratory Function Stable: Yes Airway Patent: Yes Cardiovascular Function Stable: Yes Hydration Status Stable: Yes Pain Control Satisfactory: Yes Nausea and Vomiting Control Satisfactory: Yes Mental Status Recovered: Yes Pulse Rate: 54 Resp Rate: 18 Blood Pressure: 118/61
[2018-04-28] MEDS: Simvastatin 20 MG Tab PO SCH (21:00)
[2018-04-29] MEDS: Ampicillin 2 GM in Sodium Chloride 0.9% 100 ML IV SCH ×2 (01:43→07:07)
[2018-04-29] MEDS: Levothyroxine 112 MCG Tab PO SCH (06:57)
[2018-04-29] MEDS: Ondansetron 4 MG/2 ML SDV IVPUSH PRN (07:56)
[2018-04-29] MEDS: Gemfibrozil 600 MG Tab PO SCH (09:15)
[2018-04-29] MEDS: amLODIPine 2.5 MG Tab PO SCH (09:16)
[2018-04-29] MEDS: Metoprolol Succinate 25 MG Tab.ER PO SCH (09:17)
[2018-04-29] MEDS: Sertraline 100 MG Tab PO SCH (09:18)
[2018-04-29 15:37] VITALS: BP 138/78
--- NOTE | 2018-04-30 13:47 | DISCH ---
DATE OF DISCHARGE: 04/29/2018 PRIMARY CARE PHYSICIAN: Kodi Quiroz M.D. 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 His prostate is small, however, in an effort to make it possible for him to void, he is admitted for a TURP. That was done yesterday. The urine remained clear. This morning his catheter was taken out, he was unable to void adequately. He had 900 mL scanned in his bladder, so his catheter was put back in and he was sent home with a Vargas catheter. He is instructed to take the catheter out in 13 days at 7 or 8:00 a.m. He is to come to my office on the same day at 4:00 p.m., we will do a bladder scan and take it from there. GATITO GODDARD /[id number]
== END 2018-04-29 19:45 | disposition home or self-care (01) ==
LOC: MW.SDS 13:17 → INTOOBSV 13:20 → MW.MS 13:20
PROVIDERS: ADMIT Urology; ATTEND Urology
DX: N40.1 Benign prostatic hyperplasia with lower urinary tract symptoms (principal); R33.8 Other retention of urine; N39.498 Other specified urinary incontinence; I12.9 Hypertensive chronic kidney disease with stage 1 through stage 4 chronic kidney disease, or unspecified chronic kidney disease; E11.22 Type 2 diabetes mellitus with diabetic chronic kidney disease; N18.3 Chronic kidney disease, stage 3 (moderate); Z79.84 Long term (current) use of oral hypoglycemic drugs; Z79.899 Other long term (current) drug therapy; Z68.32 Body mass index [BMI] 32.0-32.9, adult; E78.5 Hyperlipidemia, unspecified; E78.00 Pure hypercholesterolemia, unspecified; G47.30 Sleep apnea, unspecified; F32.9 Major depressive disorder, single episode, unspecified; Z87.891 Personal history of nicotine dependence; Z79.82 Long term (current) use of aspirin
CPT/HCPCS: 36415; 51702; 52601; 80048; 82962; 85025; 88305; 96361; 96365; 96366; 96375; 96376; A9270; G0378; J0290; J2250; J2405; J3010; J3260; J7030; J7120; J2704

== ENCOUNTER 2018-06-26 10:28 | Emergency (ER) | payer MEDICARE, OTHER ==
--- NOTE | 2018-06-26 10:33 | EDM.PDOC ---
ED HPI GENERAL MEDICAL PROBLEM - General Stated Complaint: PT HAS TROUBLE GOING TO THE BATHROOM Time Seen by Provider: 06/26/18 10:33 Source of Information: Reports: Patient - History of Present Illness INITIAL COMMENTS - FREE TEXT/NARRATIVE: HISTORY AND PHYSICAL: History of present illness: [Patient presents 6 weeks post TURP procedure with Dr. Bonds His complaint is urinary retention, he has been passing some clots none able to urinate this morning he did have some dribbling Fever nausea vomiting chills sweats ] Review of systems: As per history of present illness and below otherwise all systems reviewed and negative. Past medical history: As per history of present illness and as reviewed below otherwise noncontributory. Surgical history: As per history of present illness and as reviewed below otherwise noncontributory. Social history: No reported history of drug or alcohol abuse. Family history: As per history of present illness and as reviewed below otherwise noncontributory. Physical exam: HEENT: Atraumatic, normocephalic, pupils reactive, negative for conjunctival pallor or scleral icterus, mucous membranes moist, throat clear, neck supple, nontender, trachea midline. Lungs: Clear to auscultation, breath sounds equal bilaterally, chest nontender. Heart: S1S2, regular, negative for clicks, rubs, or JVD. Abdomen: Soft, nondistended, nontender. Negative for masses or hepatosplenomegaly. Negative for costovertebral tenderness. Pelvis: Stable nontender. Genitourinary: Deferred. Rectal: Deferred. Extremities: Atraumatic, negative for cords or calf pain. Neurovascular unremarkable. Neuro: Awake, alert, oriented. Cranial nerves II through XII unremarkable. Cerebellum unremarkable. Motor and sensory unremarkable throughout. Exam nonfocal. Diagnostics: [CBC CMP INR UA with culture bladder scan was ordered however not performed prior to Vargas insertion however only 300 mL of urine out, Vargas was flushed no clots we had return of fluid that was flushed Therapeutics: [ Vargas catheter-300 mL of urine no clots 1 g Rocephin IV Insulin 10 units IV 10 units subcutaneous ]Patient has Flomax at his disposal recommend he takes daily for a week for bladder spasm Bactrim double strength by mouth twice a day #20 no refill Patient offered observation admission and declined/refused Follow-up with primary care or urology Impression: Hyperglycemia Bladder spasm UTI chronic history baseline ] Definitive disposition and diagnosis as appropriate pending reevaluation and review of above. Bladder Pain Score (Numeric/FACES): 6 - Related Data Allergies Allergy/AdvReac Type Severity Reaction Status Date / Time No Known Allergies Allergy Verified 06/26/18 10:50 Home Meds: Home Meds Aspirin 325 mg PO DAILY 04/17/17 [History] Gemfibrozil 600 mg PO BID 04/17/17 [History] Levothyroxine 112 mcg PO ACBREAKFAST 04/17/17 [History] Metoprolol Succinate [Toprol XL] 25 mg PO DAILY 04/17/17 [History] Simvastatin [Zocor] 20 mg PO BEDTIME 04/17/17 [History] Eszopiclone 1 mg PO BEDTIME PRN 04/27/18 [History] SitaGLIPtin [Januvia] 100 mg PO BEDTIME 04/27/18 [History] amLODIPine [Norvasc] 2.5 mg PO DAILY 04/27/18 [History] Past Medical History Cardiovascular History: Reports: Angina, High Cholesterol, Hypertension, Stents Respiratory History: Reports: Sleep Apnea Gastrointestinal History: Reports: Diverticulosis Genitourinary History: Reports: BPH, Urinary Incontinence Musculoskeletal History: Reports: RA Neurological History: Reports: Migraines Psychiatric History: Reports: Depression Endocrine/Metabolic History: Reports: Diabetes, Type II Oncologic (Cancer) History: Reports: Thyroid - Infectious Disease History Infectious Disease History: Reports: Chicken Pox, Measles, Mumps - Past Surgical History Head Surgeries/Procedures: Reports: None HEENT Surgical History: Reports: Tonsillectomy Other HEENT Surgeries/Procedures: dental surgery Cardiovascular Surgical History: Reports: Coronary Artery Stent Endocrine Surgical History: Reports: Thyroidectomy Musculoskeletal Surgical History: Reports: Shoulder Replacement Social & Family History - Family History Family Medical History: Noncontributory - Caffeine Use Caffeine Use: Reports: Tea Caffeine Use Comment: 2cups/day ED ROS GENERAL - Review of Systems Review Of Systems: See Below ED EXAM, GENERAL - Physical Exam Exam: See Below Course - Vital Signs Last Recorded V/S: Last Vital Signs Temp 97.0 F 06/26/18 10:46 Pulse 66 06/26/18 10:46 Resp 18 06/26/18 10:46 BP 124/78 06/26/18 10:46 Pulse Ox 96 06/26/18 10:46 - Orders/Labs/Meds Orders: Active Orders 24 hr Category Date Time Status Chest 1V Frontal [CR] Stat Exams 06/26/18 11:51 Taken CULTURE URINE [RM] Stat Lab 06/26/18 11:05 Received UA W/MICROSCOPIC [URIN] Stat Lab 06/26/18 11:05 Ordered Sodium Chloride 0.9% [Normal Saline] 1,000 ml Med 06/26/18 11:45 Active IV STAT Sodium Chloride 0.9% [Normal Saline] 500 ml Med 06/26/18 11:45 Active IV STAT Medication Orders Sodium Chloride (Normal Saline) 1,000 mls @ 125 mls/hr IV STAT DENY Last Admin: 06/26/18 12:01 Dose: 999 mls/hr Sodium Chloride (Normal Saline) 500 mls @ 999 mls/hr IV STAT DENY Labs: Laboratory Tests 06/26/18 06/26/18 06/26/18 Range/Units 10:48 10:48 10:48 WBC 8.91 (4.0-11.0) K/uL RBC 4.38 L (4.50-5.90) M/uL Hgb 12.7 L (13.0-17.0) g/dL Hct 37.3 L (38.0-50.0) % MCV 85.2 (80.0-98.0) fL MCH 29.0 (27.0-32.0) pg MCHC 34.0 (31.0-37.0) g/dL RDW Std Deviation 39.8 (28.0-62.0) fl RDW Coeff of Kalin 13 (11.0-15.0) % Plt Count 181 (150-400) K/uL MPV 9.00 (7.40-12.00) fL Neut % (Auto) 68.0 (48.0-80.0) % Lymph % (Auto) 22.1 (16.0-40.0) % [place] % (Auto) 7.1 (0.0-15.0) % Eos % (Auto) 2.2 (0.0-7.0) % Baso % (Auto) 0.6 (0.0-1.5) % Neut # (Auto) 6.1 H (1.4-5.7) K/uL Lymph # (Auto) 2.0 (0.6-2.4) K/uL [place] # (Auto) 0.6 (0.0-0.8) K/uL Eos # (Auto) 0.2 (0.0-0.7) K/uL Baso # (Auto) 0.1 (0.0-0.1) K/uL Nucleated RBC % 0.0 /100WBC Nucleated RBCs # 0 K/uL INR 1.22 Sodium 129 L (136-148) mmol/L Potassium 4.3 (3.5-5.1) mmol/L Chloride 95 L (98-107) mmol/L Carbon Dioxide 26.0 (21.0-32.0) mmol/L BUN 19 H (7.0-18.0) mg/dL Creatinine 1.4 H (0.8-1.3) mg/dL Est Cr Clr Drug Dosing 43.28 mL/min Estimated GFR (MDRD) 49.5 ml/min Glucose 498 H (74-106) mg/dL POC Glucose (60-110) mg/dL Calcium 8.6 (8.5-10.1) mg/dL Total Bilirubin 0.4 (0.2-1.0) mg/dL AST 12 L (15-37) IU/L ALT 26 (14-63) IU/L Alkaline Phosphatase 140 H (46-116) U/L Total Protein 7.3 (6.4-8.2) g/dL Albumin 3.7 (3.4-5.0) g/dL Globulin 3.6 H (2.0-3.5) g/dL Albumin/Globulin Ratio 1.0 L (1.3-2.8) Urine Color Urine Appearance Urine pH (5.0-8.0) Ur Specific [place] (1.001-1.035) Urine Protein (NEGATIVE) mg/dL Urine Glucose (UA) (NEGATIVE) mg/dL Urine Ketones (NEGATIVE) mg/dL Urine Occult Blood (NEGATIVE) Urine Nitrite (NEGATIVE) Urine Bilirubin (NEGATIVE) Urine Urobilinogen (<2.0) EU/dL Ur Leukocyte Esterase (NEGATIVE) Urine RBC (0-2/HPF) Urine WBC (0-5/HPF) Ur Epithelial Cells (NONE-FEW) Urine Bacteria (NEGATIVE) 06/26/18 06/26/18 Range/Units 11:05 12:35 WBC (4.0-11.0) K/uL RBC (4.50-5.90) M/uL Hgb (13.0-17.0) g/dL Hct (38.0-50.0) % MCV (80.0-98.0) fL MCH (27.0-32.0) pg MCHC (31.0-37.0) g/dL RDW Std Deviation (28.0-62.0) fl RDW Coeff of Kalin (11.0-15.0) % Plt Count (150-400) K/uL MPV (7.40-12.00) fL Neut % (Auto) (48.0-80.0) % Lymph % (Auto) (16.0-40.0) % [place] % (Auto) (0.0-15.0) % Eos % (Auto) (0.0-7.0) % Baso % (Auto) (0.0-1.5) % Neut # (Auto) (1.4-5.7) K/uL Lymph # (Auto) (0.6-2.4) K/uL [place] # (Auto) (0.0-0.8) K/uL Eos # (Auto) (0.0-0.7) K/uL Baso # (Auto) (0.0-0.1) K/uL Nucleated RBC % /100WBC Nucleated RBCs # K/uL INR Sodium (136-148) mmol/L Potassium (3.5-5.1) mmol/L Chloride (98-107) mmol/L Carbon Dioxide (21.0-32.0) mmol/L BUN (7.0-18.0) mg/dL Creatinine (0.8-1.3) mg/dL Est Cr Clr Drug Dosing mL/min Estimated GFR (MDRD) ml/min Glucose (74-106) mg/dL POC Glucose 340 H (60-110) mg/dL Calcium (8.5-10.1) mg/dL Total Bilirubin (0.2-1.0) mg/dL AST (15-37) IU/L ALT (14-63) IU/L Alkaline Phosphatase (46-116) U/L Total Protein (6.4-8.2) g/dL Albumin (3.4-5.0) g/dL Globulin (2.0-3.5) g/dL Albumin/Globulin Ratio (1.3-2.8) Urine Color DARK YELLOW Urine Appearance CLOUDY Urine pH 6.5 (5.0-8.0) Ur Specific [place] 1.020 (1.001-1.035) Urine Protein >=300 (NEGATIVE) mg/dL Urine Glucose (UA) >=1000 (NEGATIVE) mg/dL Urine Ketones NEGATIVE (NEGATIVE) mg/dL Urine Occult Blood LARGE H (NEGATIVE) Urine Nitrite POSITIVE H (NEGATIVE) Urine Bilirubin NEGATIVE (NEGATIVE) Urine Urobilinogen 0.2 (<2.0) EU/dL Ur Leukocyte Esterase SMALL (NEGATIVE) Urine RBC TOO NUMEROUS TO CT (0-2/HPF) Urine WBC TO NUMEROUS TO COUNT H (0-5/HPF) Ur Epithelial Cells RARE (NONE-FEW) Urine Bacteria 1+ H (NEGATIVE) Meds: Medications Generic Name Dose Route Start Last Admin Trade Name Freq PRN Reason Stop Dose Admin Sodium Chloride 1,000 mls @ 125 mls/hr 06/26/18 11:45 06/26/18 12:01 Normal Saline IV 999 mls/hr STAT DENY Administration Sodium Chloride 500 mls @ 999 mls/hr 06/26/18 11:45 Normal Saline IV STAT DENY Discontinued Medications Generic Name Dose Route Start Last Admin Trade Name Freq PRN Reason Stop Dose Admin Ceftriaxone Sodium/Dextrose 1 50 mls @ 100 mls/hr 06/26/18 11:38 06/26/18 12: 05 gm/ Premix IV 06/26/18 12:07 100 mls/hr ONETIME ONE Administration Insulin Human Regular 10 unit 06/26/18 11:36 06/26/18 12:00 Novolin R IVPUSH 06/26/18 11:37 10 unit ONETIME ONE Administration Protocol Insulin Human Regular 10 unit 06/26/18 11:37 06/26/18 12:01 Novolin R SUBCUT 06/26/18 11:38 10 units NOW STA Administration Protocol Departure - Departure Time of Disposition: 12:41 Disposition: Home, Self-Care 01 Condition: Good Clinical Impression: UTI, Urinary tract infectious disease, Hyperglycemia - Discharge Information Referrals: Kodi Quiroz MD [Primary Care Provider] - Additional Instructions: Follow diabetic diet Follow-up with primary care recheck sugar levels and optimize medical management of diabetes Follow-up with urology next week as needed Return if symptoms persist in the interim Medication as prescribed [facility] - Primary Care [address] [place] [id number] [facility] - Urology [address] [place] [id number] The following information is given to patients seen in the emergency department who are being discharged to home. This information is to outline your options for follow-up care. We provide all patients seen in our emergency department with a follow-up referral. The need for follow-up, as well as the timing and circumstances, are variable depending upon the specifics of your emergency department visit. If you don't have a primary care physician on staff, we will provide you with a referral. We always advise you to contact your personal physician following an emergency department visit to inform them of the circumstance of the visit and for follow-up with them and/or the need for any referrals to a consulting specialist. The emergency department will also refer you to a specialist when appropriate. This referral assures that you have the opportunity for follow-up care with a specialist. All of these measure are taken in an effort to provide you with optimal care, which includes your follow-up. Under all circumstances we always encourage you to contact your private physician who remains a resource for coordinating your care. When calling for follow-up care, please make the office aware that this follow-up is from your recent emergency room visit. If for any reason you are refused follow-up, please contact the [facility] emergency department at and asked to speak to the emergency department charge nurse. - My Orders Last 24 Hours: My Active Orders 06/26/18 11:05 CULTURE URINE [RM] Stat UA W/MICROSCOPIC [URIN] Stat 06/26/18 11:45 Sodium Chloride 0.9% [Normal Saline] 1,000 ml IV STAT Sodium Chloride 0.9% [Normal Saline] 500 ml IV STAT 06/26/18 11:51 Chest 1V Frontal [CR] Stat - Assessment/Plan Last 24 Hours: My Active Orders 06/26/18 11:05 CULTURE URINE [RM] Stat UA W/MICROSCOPIC [URIN] Stat 06/26/18 11:45 Sodium Chloride 0.9% [Normal Saline] 1,000 ml IV STAT Sodium Chloride 0.9% [Normal Saline] 500 ml IV STAT 06/26/18 11:51 Chest 1V Frontal [CR] Stat
[2018-06-26 10:50] VITALS: BP 124/78
[2018-06-26] MEDS ORDERED: Insulin Regular, Human 100 Units/ML 10 ML Vial IVPUSH ONE (11:36)
[2018-06-26] MEDS ORDERED: Insulin Regular, Human 100 Units/ML 10 ML Vial SUBCUT STA (11:37)
[2018-06-26] MEDS ORDERED: cefTRIAXone 1 GM in Premix Bag 1 BAG IV ONE (11:38)
[2018-06-26] MEDS ORDERED: Sodium Chloride 0.9% 1,000 ML IV SCH (11:45)
[2018-06-26] MEDS ORDERED: Sodium Chloride 0.9% 500 ML IV SCH (11:45)
--- NOTE | 2018-06-26 13:00 | CR ---
EXAMINATION: Portable chest radiograph. HISTORY: Shortness of breath. FINDINGS: The trachea is midline. The cardiomediastinal silhouette is within normal limits. No pulmonary infilt rates, effusions or pneumothorax. Left shoulder replacement hardware is noted. IMPRESSION: No acute cardiopulmonary process.
== END 2018-06-26 13:25 | disposition home or self-care (01) ==
LOC: MW.ED 10:28
DX: N39.0 Urinary tract infection, site not specified (principal); R73.9 Hyperglycemia, unspecified; I10 Essential (primary) hypertension; E78.00 Pure hypercholesterolemia, unspecified; E11.9 Type 2 diabetes mellitus without complications; F32.9 Major depressive disorder, single episode, unspecified; Z79.82 Long term (current) use of aspirin; Z79.899 Other long term (current) drug therapy
CPT/HCPCS: 36415; 71045; 80053; 81001; 82962; 85025; 85610; 87086; 96365; 99284; J0696; J1815; J7040; 99283

== ENCOUNTER 2019-02-05 06:20 | Day surgery (SDC) | payer MEDICARE ==
[2019-02-05] MEDS ORDERED: Lidocaine 2% 5 ML SDV ONE (07:33)
[2019-02-05] MEDS ORDERED: Propofol 200 MG/20 ML SDV ONE (07:34)
[2019-02-05] MEDS ORDERED: fentaNYL 100 MCG/2 ML SDV ONE (07:34)
[2019-02-05] MEDS ORDERED: Midazolam 1 MG/ML 2 ML SDV ONE (07:34)
[2019-02-05] MEDS ORDERED: Bupivacaine 0.25%/EPINEPHrine 1:200,000 10 ML SDV ONE (07:37)
[2019-02-05] MEDS ORDERED: ceFAZolin 1 GM Vial ONE (07:52)
[2019-02-05] MEDS ORDERED: ceFAZolin 2 GM in Premix Bag 1 BAG IV ONE (08:00)
[2019-02-05] MEDS ORDERED: Lactated Ringers 1,000 ML IV SCH (08:00)
[2019-02-05] MEDS ORDERED: Bupivacaine 0.25%/EPINEPHrine 1:200,000 10 ML SDV INJECT ONE (08:00)
[2019-02-05 08:38] VITALS: BP 150/87
--- NOTE | 2019-02-09 08:29 | PCM.OPNOTE ---
- General Post-Op/Procedure Note Date of Surgery/Procedure: 02/05/19 Operative Procedure(s): left carpal tunnel release Pre Op Diagnosis: left carpal tunnel syndrome Post-Op Diagnosis: Same Anesthesia Technique: Local, MAC Primary Surgeon: Myra Vance Computer Science Instructor: Juany Chapman Complications: None Condition: Good Free Text/Narrative:: [id number]
--- NOTE | 2019-02-09 13:55 | OR ---
SURGEON: MONI BRADEN MD DATE OF PROCEDURE: 02/05/2019 PREOPERATIVE DIAGNOSIS: Right carpal tunnel syndrome. POSTOPERATIVE DIAGNOSIS: Right carpal tunnel syndrome. PROCEDURE PERFORMED: Right carpal tunnel release. TEXTILE DESIGNER: PINO Piedra. REASON FOR AND ROLE OF TEXTILE DESIGNER: Retraction, prepping, draping, positioning and closure assistance. ANESTHESIA: Local MAC. INDICATIONS: Mr. Estevez is a 73-year-old gentleman with Right carpal tunnel syndrome. Risks and benefits were discussed with him including, but not limited to, bleeding, infection, damage to underlying or overlying structures, possible need for future interventions, possible scarring. PROCEDURE IN DETAIL: After informed consent was obtained and placed on the chart, the patient was brought to the operating theater and laid in supine position. After adequate local MAC anesthesia was obtained, the area was prepped and draped, a time-out was completed to confirm side and site. The arm was exsanguinated and the tourniquet was insufflated to 200 mmHg. Attention was then paid to dissection over the transverse carpal ligament and dissection was carried through skin and subcutaneous tissues until breach of the ligament. Dissection was then carried distally and proximally until complete release. Once adequately released, the area was irrigated and closed with 5-0 nylon stitch in a horizontal mattress fashion. The wound was dressed with Xeroform fluffs, and a Kerlix gauze dressing, and a 2-inch Ric wrap. The patient tolerated this well. All counts and needles were correct at the end of the case. Tourniquet was desufflated at the end of the case. FOLLOWUP INSTRUCTIONS: The patient will see us in 2 weeks; sooner if any problems, questions, or concerns. He is given a prescription for pain control if necessary. All questions answered. HEGGTHE / MODL /[id number]
== END 2019-02-05 09:41 | disposition home or self-care (01) ==
LOC: MW.SDS 06:20
PROVIDERS: ATTEND Plastic Surgery
DX: G56.03 Carpal tunnel syndrome, bilateral upper limbs (principal); I25.10 Atherosclerotic heart disease of native coronary artery without angina pectoris; I12.9 Hypertensive chronic kidney disease with stage 1 through stage 4 chronic kidney disease, or unspecified chronic kidney disease; E11.22 Type 2 diabetes mellitus with diabetic chronic kidney disease; N18.9 Chronic kidney disease, unspecified; E11.42 Type 2 diabetes mellitus with diabetic polyneuropathy; E78.00 Pure hypercholesterolemia, unspecified; E03.9 Hypothyroidism, unspecified; F41.9 Anxiety disorder, unspecified; F32.9 Major depressive disorder, single episode, unspecified; E66.9 Obesity, unspecified; Z68.30 Body mass index [BMI] 30.0-30.9, adult; Z95.5 Presence of coronary angioplasty implant and graft; Z87.891 Personal history of nicotine dependence; Z79.82 Long term (current) use of aspirin; Z79.84 Long term (current) use of oral hypoglycemic drugs; Z79.899 Other long term (current) drug therapy
CPT/HCPCS: 64721; J0690; J3490; J7120; J2001; J2250; J2704; J3010

== ENCOUNTER 2019-02-17 06:45 | Day surgery (SDC) | payer MEDICARE, OTHER ==
[2019-02-17] MEDS ORDERED: Sodium Chloride 0.9% 0 ML ONE (07:33)
[2019-02-17] MEDS ORDERED: ceFAZolin 1 GM Vial ONE (07:33)
[2019-02-17] MEDS ORDERED: Ondansetron 4 MG/2 ML SDV ONE (07:34)
[2019-02-17] MEDS ORDERED: Midazolam 1 MG/ML 2 ML SDV ONE (07:34)
[2019-02-17] MEDS ORDERED: fentaNYL 100 MCG/2 ML SDV ONE (07:34)
[2019-02-17] MEDS ORDERED: Propofol 200 MG/20 ML SDV ONE (07:34)
[2019-02-17] MEDS ORDERED: Bupivacaine 0.25%/EPINEPHrine 1:200,000 10 ML SDV ONE (07:39)
[2019-02-17] MEDS ORDERED: Lidocaine 1% 20 ML MDV ONE (07:46)
[2019-02-17] MEDS ORDERED: ceFAZolin 2 GM in Premix Bag 1 BAG IV ONE (08:00)
[2019-02-17] MEDS ORDERED: Bupivacaine 0.25%/EPINEPHrine 1:200,000 10 ML SDV INJECT ONE (08:00)
[2019-02-17] MEDS ORDERED: Lactated Ringers 1,000 ML IV SCH (08:00)
[2019-02-17] MEDS ORDERED: Acetaminophen/HYDROcodone 325-5 MG Tab PO PRN (08:00)
[2019-02-17 09:21] VITALS: BP 118/71
--- NOTE | 2019-02-18 12:34 | PCM.OPNOTE ---
- General Post-Op/Procedure Note Date of Surgery/Procedure: 02/17/19 Operative Procedure(s): left carpal tunnel release Pre Op Diagnosis: left carpal tunnel Post-Op Diagnosis: Same Anesthesia Technique: Local Primary Surgeon: Myra Vance Public Health Doctor: Juany Chapman Complications: None Condition: Good
--- NOTE | 2019-02-18 18:42 | OR ---
SURGEON: MONI BRADEN MD DATE OF PROCEDURE: 02/17/2019 PREOPERATIVE DIAGNOSIS: Left carpal tunnel syndrome. POSTOPERATIVE DIAGNOSIS: Left carpal tunnel syndrome. PROCEDURE: Left carpal tunnel release. MENTAL HEALTH PROGRAM DIRECTOR: PINO Piedra. ANESTHESIA: Local. INDICATIONS: Mr. Estevez is a 73-year-old gentleman on whom we previously done a right carpal tunnel release on. He is doing quite well and would now like the left hand. Risks were including, but not limited to, bleeding, infection, damage to underlying or overlying structures, possible need for future interventions, and possible scarring. He has failed conservative management and would like to proceed. PROCEDURE IN DETAIL: After informed consent was obtained and placed on the chart, the patient was brought to the operating theater and laid in supine position. After adequate local anesthesia was obtained, the area was prepped and draped after a time-out had been completed to confirm side and site. Attention was then paid to a #15 blade. Dissection through skin and subcutaneous tissues was completed until breach of the ligament. Dissection was carried distally and proximally until complete release of the ligament under direct visualization. Once adequately released, the area was irrigated and closed using 5-0 nylon stitch in a horizontal mattress fashion. The patient tolerated this well. All counts needles were correct at the end of the case. FOLLOWUP INSTRUCTIONS: The patient will see us in 2 weeks for suture removal, sooner if any problems, questions, or concerns. HEGGTHE / LEIGHTONL /[id number]
== END 2019-02-17 09:50 | disposition home or self-care (01) ==
LOC: MW.SDS 06:45
PROVIDERS: ATTEND Plastic Surgery
DX: G56.02 Carpal tunnel syndrome, left upper limb (principal); F41.9 Anxiety disorder, unspecified; F32.9 Major depressive disorder, single episode, unspecified; I12.9 Hypertensive chronic kidney disease with stage 1 through stage 4 chronic kidney disease, or unspecified chronic kidney disease; E11.22 Type 2 diabetes mellitus with diabetic chronic kidney disease; E11.40 Type 2 diabetes mellitus with diabetic neuropathy, unspecified; N18.9 Chronic kidney disease, unspecified; E03.9 Hypothyroidism, unspecified; E66.9 Obesity, unspecified; Z68.33 Body mass index [BMI] 33.0-33.9, adult; E78.00 Pure hypercholesterolemia, unspecified; Z87.891 Personal history of nicotine dependence; Z79.84 Long term (current) use of oral hypoglycemic drugs; Z79.82 Long term (current) use of aspirin; Z79.899 Other long term (current) drug therapy
CPT/HCPCS: 64721; J2001; J3490; J7120; J0690; J2250; J2405; J2704; J3010

== ENCOUNTER 2019-04-15 06:19 | Day surgery (SDC) | payer MEDICARE, OTHER ==
[~2019-04-15 06:19] MED LIST: Lactated Ringers 1,000 ML IV SCH; Sodium Chloride 0.9% 10 ML Syringe FLUSH PRN; ceFAZolin 2 GM in Premix Bag 1 BAG IV ONE
[2019-04-15] MEDS ORDERED: Lidocaine 2% 5 ML SDV ONE (07:14)
[2019-04-15] MEDS ORDERED: Propofol 200 MG/20 ML SDV ONE (07:14)
[2019-04-15] MEDS ORDERED: fentaNYL 100 MCG/2 ML SDV ONE (07:14)
[2019-04-15] MEDS ORDERED: Midazolam 1 MG/ML 2 ML SDV ONE (07:14)
--- NOTE | 2019-04-15 07:21 | PCM.PREANE ---
Preanesthetic Assessment - Anesthesia/Transfusion/Family Hx Anesthesia History: Prior Anesthesia Without Reaction Family History of Anesthesia Reaction: No Transfusion History: No Prior Transfusion(s) Intubation History: Unknown - Review of Systems General: No Symptoms Pulmonary: No Symptoms Cardiovascular: No Symptoms Gastrointestinal: No Symptoms Neurological: No Symptoms Other: Reports: None - Physical Assessment O2 Sat by Pulse Oximetry: 97 Respiratory Rate: 15 Vital Signs: Last Vital Signs Temp 36.4 C 04/15/19 06:47 Pulse 67 04/15/19 06:47 Resp 15 04/15/19 06:47 BP 134/80 04/15/19 06:47 Pulse Ox 97 04/15/19 06:47 Height: 5 ft 7 in Weight: 97.522 kg ASA Class: 3 Mental Status: Alert & Oriented x3 Airway Class: Mallampati = 2 Dentition: Reports: Dentures (upper and lower), Implants (x4) Thyro-Mental Finger Breadths: 3 Mouth Opening Finger Breadths: 3 ROM/Head Extension: Limited/Partial Lungs: Clear to Auscultation, Normal Respiratory Effort Cardiovascular: Regular Rate, Regular Rhythm - Allergies Allergies/Adverse Reactions: Allergies Allergy/AdvReac Type Severity Reaction Status Date / Time No Known Allergies Allergy Verified 04/01/19 06:55 - Blood Blood Available: No - Anesthesia Plan Pre-Op Medication Ordered: None - Acknowledgements Anesthesia Type Planned: General Anesthesia Pt an Appropriate Candidate for the Planned Anesthesia: Yes Alternatives and Risks of Anesthesia Discussed w Pt/Guardian: Yes Pt/Guardian Understands and Agrees with Anesthesia Plan: Yes PreAnesthesia Questionnaire HEENT History: Reports: Other (See Below) Other HEENT History: has upper and lower dental plate Cardiovascular History: Reports: CAD, High Cholesterol, Stents (x1 '96) Respiratory History: Reports: Sleep Apnea Other Respiratory History: had sleep apnea- lost weight- no CPAP for the last 7 years Gastrointestinal History: Reports: Diverticulosis Genitourinary History: Reports: BPH, Other (See Below) Other Genitourinary History: hx of ESBL Musculoskeletal History: Reports: RA Neurological History: Reports: Neuropathy, Peripheral, Vertigo Other Neuro History: hx of positional vertigo Psychiatric History: Reports: Depression Endocrine/Metabolic History: Reports: Diabetes, Type II, Hypothyroidism, Obesity /BMI 30+ Hematologic History: Reports: None Immunologic History: Reports: Other (See Below) Other Immunologic History: hx ESBL (extended spectrum beta-lactamase Oncologic (Cancer) History: Reports: Thyroid Dermatologic History: Reports: None - Infectious Disease History Infectious Disease History: Reports: Chicken Pox, Measles, Mumps - Past Surgical History Head Surgeries/Procedures: Reports: None HEENT Surgical History: Reports: Oral Surgery Other HEENT Surgeries/Procedures: has 4 dental implants (upper plate connects to dental pins) Cardiovascular Surgical History: Reports: Coronary Artery Stent Other Cardiovascular Surgeries/Procedures: angioplasty with 1 stent in 1995 GI Surgical History: Reports: Colonoscopy, EGD Male Surgical History: Reports: TURP-Transurethral Resection of Prostate Endocrine Surgical History: Reports: Thyroidectomy Musculoskeletal Surgical History: Reports: Carpal Tunnel, Shoulder Surgery Other Musculoskeletal Surgeries/Procedures:: left Total Shoulder Arthroplasty, Carpal tunnel release on 02/17/19 Oncologic Surgical History: Reports: Other (See Below) Other Oncologic Surgeries/Procedures: Thyroidectomy - SUBSTANCE USE Smoking Status *Q: Former Smoker (quit long time ago) Recreational Drug Use History: No - HOME MEDS Home Medications: Home Meds Aspirin 325 mg PO DAILY 04/17/17 [History] Gemfibrozil 600 mg PO BID 04/17/17 [History] Levothyroxine 150 mcg PO ACBREAKFAST 04/17/17 [History] Metoprolol Succinate [Toprol XL] 25 mg PO DAILY 04/17/17 [History] Simvastatin [Zocor] 20 mg PO BEDTIME 04/17/17 [History] amLODIPine [Norvasc] 2.5 mg PO QAM 04/27/18 [History] Glimepiride [Amaryl] 2 mg PO QAM 02/03/19 [History] Sertraline HCl 50 mg PO DAILY 02/03/19 [History] Tolterodine Tartrate 2 mg PO BEDTIME 02/03/19 [History] Zolpidem Tartrate 10 mg PO BEDTIME 02/03/19 [History] - CURRENT (IN HOUSE) MEDS Current Meds: Current Medications Lactated Ringer's (Ringers, Lactated) 1,000 mls @ 100 mls/hr IV ASDIRECTED DENY Last Admin: 04/15/19 06:52 Dose: 100 mls/hr Sodium Chloride (Saline Flush) 10 ml FLUSH ASDIRECTED PRN PRN Reason: Keep Vein Open Discontinued Medications Fentanyl (Sublimaze) Confirm Administered Dose 100 mcg .ROUTE .STK-MED ONE Stop: 04/15/19 07:15 Cefazolin Sodium/Dextrose 2 gm (/ Premix) 50 mls @ 100 mls/hr IV ONCALL ONE Stop: 04/06/19 00:30 Lactated Ringer's (Ringers, Lactated) 1,000 mls @ 100 mls/hr IV ASDIRECTED DENY Cefazolin Sodium/Dextrose 2 gm (/ Premix) 50 mls @ 100 mls/hr IV ONCALL ONE Stop: 04/15/19 00:34 Lidocaine (Xylocaine-Mpf 2%) Confirm Administered Dose 5 ml .ROUTE .STK-MED ONE Stop: 04/15/19 07:15 Midazolam HCl (Versed 1 Mg/Ml) Confirm Administered Dose 2 mg .ROUTE .STK-MED ONE Stop: 04/15/19 07:15 Propofol (Diprivan 20 Ml) Confirm Administered Dose 200 mg .ROUTE .STK-MED ONE Stop: 04/15/19 07:15
[2019-04-15] MEDS ORDERED: ceFAZolin/Dextrose,Iso-Osmotic 2 GM/50 ML Duplex Bag IV ONE (07:35)
[2019-04-15] MEDS ORDERED: Lidocaine 2% Jelly 30 ML Tube ONE (07:41)
[2019-04-15] MEDS ORDERED: ePHEDrine 50 MG/ML SDV ONE (08:26)
[2019-04-15] MEDS ORDERED: Sodium Chloride 0.9% 20 ML ONE (08:26)
[2019-04-15] MEDS ORDERED: Ondansetron 4 MG/2 ML SDV ONE (08:30)
[2019-04-15] MEDS ORDERED: Phenylephrine/Normal Saline 100 MCG/ML 10 ML Syringe ONE (08:41)
[2019-04-15] MEDS ORDERED: fentaNYL 100 MCG/2 ML SDV IVPUSH PRN (10:42)
[2019-04-15] MEDS ORDERED: Atropine 0.1 MG/ML 10 ML Syringe IVPUSH PRN ×2 (10:42)
[2019-04-15] MEDS ORDERED: Albuterol 0.083% 2.5 MG/3 ML Neb Soln NEB PRN (10:42)
[2019-04-15] MEDS ORDERED: Naloxone 0.4 MG/ML Syringe IVPUSH PRN (10:42)
[2019-04-15] MEDS ORDERED: EPINEPHrine 1:10,000 1 MG/10 ML Syringe IVPUSH PRN (10:42)
[2019-04-15] MEDS ORDERED: 50% Dextrose in Water 50 ML Syringe IVPUSH PRN (10:42)
[2019-04-15 10:45] VITALS: BP 108/66
--- NOTE | 2019-04-15 16:04 | OR ---
SURGEON: Rowan Curry M.D. DATE OF PROCEDURE: 04/15/2019 POSTOPERATIVE DIAGNOSES: 1. Bladder neck contracture. 2. Urethral stricture with overflow incontinence. POSTOPERATIVE DIAGNOSES: 1. Bladder neck contracture. 2. Urethral stricture with overflow incontinence. OPERATION: Visual urethrotomy for the stricture and bladder neck resection for the bladder neck contracture. DESCRIPTION OF PROCEDURE: The patient was given general anesthesia, placed in dorsal lithotomy position, prepped and draped in sterile drapes. The visual urethrotome was introduced in the urethra and the bulbous urethral stricture was cut in 4 quadrants and then dilated using 28 Lito sound. The bladder neck was then approached and initially was cut with visual urethrotome to allow access to the resection loop and the bladder. Subsequently, the bladder neck was resected and minimal amount of prostate tissue was taken out. There was no prostatic tissue obstruction. After that, the pieces were all removed. The bleeding points were fulgurated and a 20-[place] Vargas catheter with 30 mL in the balloon was left in the bladder connected to straight drainage. Estimated blood loss under 30 mL. GATITO / NITZA /[id number]
[2019-04-15] MEDS ORDERED: Simvastatin 20 MG Tab PO SCH (21:00)
[2019-04-15] MEDS ORDERED: ZOLPIDEM TARTRATE 10 MG PO SCH (21:00)
[2019-04-15] MEDS ORDERED: Gemfibrozil 600 MG Tab PO SCH (21:00)
[2019-04-16] MEDS ORDERED: Levothyroxine 75 MCG Tab PO SCH (07:30)
[2019-04-16] MEDS ORDERED: amLODIPine 2.5 MG Tab PO SCH (09:00)
[2019-04-16] MEDS ORDERED: Glimepiride 2 MG Tab PO SCH (09:00)
[2019-04-16] MEDS ORDERED: Sertraline 50 MG Tab PO SCH (09:00)
[2019-04-16] MEDS ORDERED: Metoprolol Succinate 25 MG Tab.ER PO SCH (09:00)
== END 2019-04-15 12:08 | disposition home or self-care (01) ==
LOC: MW.SDS 06:19
PROVIDERS: ATTEND Urology
DX: N32.0 Bladder-neck obstruction (principal); N35.912 Unspecified bulbous urethral stricture, male; N39.490 Overflow incontinence; I10 Essential (primary) hypertension; E11.9 Type 2 diabetes mellitus without complications; E03.9 Hypothyroidism, unspecified; E78.00 Pure hypercholesterolemia, unspecified; N39.0 Urinary tract infection, site not specified; E66.9 Obesity, unspecified; Z68.33 Body mass index [BMI] 33.0-33.9, adult; G47.30 Sleep apnea, unspecified; I25.10 Atherosclerotic heart disease of native coronary artery without angina pectoris; Z79.82 Long term (current) use of aspirin; Z79.899 Other long term (current) drug therapy; Z79.84 Long term (current) use of oral hypoglycemic drugs; Z87.891 Personal history of nicotine dependence; Z95.5 Presence of coronary angioplasty implant and graft
CPT/HCPCS: 52276; J0690; J2001; J2250; J2370; J2405; J2704; J3010; J7120

== ENCOUNTER 2019-05-31 13:58 | Emergency (ER) | payer MEDICARE, OTHER ==
[2019-05-31] MEDS ORDERED: Sodium Chloride 0.9% 10 ML Syringe FLUSH PRN (15:01)
[2019-05-31] MEDS ORDERED: Sodium Chloride 0.9% 1,000 ML IV ONE (15:01)
[2019-05-31] MEDS ORDERED: Sodium Chloride 0.9% 2.5 ML Syringe FLUSH PRN (15:01)
--- NOTE | 2019-05-31 15:11 | EDM.PDOC ---
ED HPI GENERAL MEDICAL PROBLEM - General Chief Complaint: Gastrointestinal Problem Stated Complaint: THROWING UP Time Seen by Provider: 05/31/19 15:10 Source of Information: Reports: Patient History Limitations: Reports: No Limitations - History of Present Illness INITIAL COMMENTS - FREE TEXT/NARRATIVE: HISTORY AND PHYSICAL: History of present illness: Patient is a 73-year-old male presents to the ED with complaint of vomiting x 1 week. He states he has had 2-3 episodes of vomiting per day for the past 7 days. He reports lower abdominal pain. He did have a couple of days of diarrhea but this has since resolved, notes he had been taking amoxicillin for an ear infection. He states he's felt feverish with chills and has had some shortness of breath. Denies chest pain, headache, cough. Review of systems: As per history of present illness and below otherwise all systems reviewed and negative. Past medical history: As per history of present illness and as reviewed below otherwise noncontributory. Surgical history: As per history of present illness and as reviewed below otherwise noncontributory. Social history: No reported history of drug or alcohol abuse. Family history: As per history of present illness and as reviewed below otherwise noncontributory. Physical exam: General: Patient sitting comfortably in no acute distress and nontoxic appearing HEENT: Atraumatic, normocephalic, pupils reactive, negative for conjunctival pallor or scleral icterus, mucous membranes moist, throat clear, neck supple, nontender, trachea midline. No meningeal signs. Lungs: Clear to auscultation, breath sounds equal bilaterally, chest nontender. Heart: S1S2, regular, negative for clicks, rubs, or overt murmur. Abdomen: Soft, nondistended, nontender. Negative for masses or hepatosplenomegaly. Negative for costovertebral tenderness. No rigidity, rebound , guarding. Pelvis: Stable nontender. Genitourinary: Deferred. Rectal: Deferred. Extremities: Atraumatic, negative for cords or calf pain. Neurovascular unremarkable. Neuro: Awake, alert, oriented. Cranial nerves II through XII unremarkable. Cerebellum unremarkable. Motor and sensory unremarkable throughout. Exam nonfocal. Notes: Patient had bladder surgery on 04/18/19 to remove scarring that was causing bladder obstruction. CT today shows moderate to marked bilateral hydronephrosis with associated marked bladder distention suspicious for bladder outlet obstruction. Post void residual of 450. Catheter left in place. Will have patient follow up with urology. Diagnostics: CBC, CMP, CXR, Abdomen/pelvis CT Therapeutics: 1L Normal saline IV 4mg Zofran IV Prescriptions: Impression: Bladder obstruction, abdominal pain Plan: Follow up with Dr. Curry, a referral has been made but please call the number provided to confirm an appointment Return to ED as needed as discussed Definitive disposition and diagnosis as appropriate pending reevaluation and review of above. Generalized Pain Score (Numeric/FACES): 4 - Related Data Allergies Allergy/AdvReac Type Severity Reaction Status Date / Time No Known Allergies Allergy Verified 05/31/19 14:24 Home Meds: Home Meds Aspirin 325 mg PO DAILY 04/17/17 [History] Gemfibrozil 600 mg PO BID 04/17/17 [History] Levothyroxine 150 mcg PO ACBREAKFAST 04/17/17 [History] Metoprolol Succinate [Toprol XL] 25 mg PO DAILY 04/17/17 [History] Simvastatin [Zocor] 20 mg PO BEDTIME 04/17/17 [History] amLODIPine [Norvasc] 2.5 mg PO QAM 04/27/18 [History] Glimepiride [Amaryl] 2 mg PO QAM 02/03/19 [History] Sertraline HCl 50 mg PO DAILY 02/03/19 [History] Tolterodine Tartrate 2 mg PO BEDTIME 02/03/19 [History] Zolpidem Tartrate 10 mg PO BEDTIME 02/03/19 [History] Past Medical History HEENT History: Reports: Other (See Below) Other HEENT History: has upper and lower dental plate Cardiovascular History: Reports: CAD, High Cholesterol, Stents Respiratory History: Reports: Sleep Apnea Other Respiratory History: had sleep apnea- lost weight- no CPAP for the last 7 years Gastrointestinal History: Reports: Diverticulosis Genitourinary History: Reports: BPH, Other (See Below) Other Genitourinary History: hx of ESBL Musculoskeletal History: Reports: RA Neurological History: Reports: Neuropathy, Peripheral, Vertigo Other Neuro History: hx of positional vertigo Psychiatric History: Reports: Depression Endocrine/Metabolic History: Reports: Diabetes, Type II, Hypothyroidism, Obesity /BMI 30+ Hematologic History: Reports: None Immunologic History: Reports: Other (See Below) Other Immunologic History: hx ESBL (extended spectrum beta-lactamase Oncologic (Cancer) History: Reports: Thyroid Dermatologic History: Reports: None - Infectious Disease History Infectious Disease History: Reports: Chicken Pox, Measles, Mumps - Past Surgical History Head Surgeries/Procedures: Reports: None HEENT Surgical History: Reports: Oral Surgery Other HEENT Surgeries/Procedures: has 4 dental implants (upper plate connects to dental pins) Cardiovascular Surgical History: Reports: Coronary Artery Stent Other Cardiovascular Surgeries/Procedures: angioplasty with 1 stent in 1995 GI Surgical History: Reports: Colonoscopy, EGD Male Surgical History: Reports: TURP-Transurethral Resection of Prostate Endocrine Surgical History: Reports: Thyroidectomy Musculoskeletal Surgical History: Reports: Carpal Tunnel, Shoulder Surgery Other Musculoskeletal Surgeries/Procedures:: left Total Shoulder Arthroplasty, Carpal tunnel release on 02/17/19 Oncologic Surgical History: Reports: Other (See Below) Other Oncologic Surgeries/Procedures: Thyroidectomy Social & Family History - Family History Family Medical History: Noncontributory - Tobacco Use Smoking Status *Q: Former Smoker Used Tobacco, but Quit: Yes Month/Year Tobacco Last Used: 1974 - Caffeine Use Caffeine Use: Reports: Coffee Caffeine Use Comment: 2cups/day - Recreational Drug Use Recreational Drug Use: No ED ROS GENERAL - Review of Systems Review Of Systems: ROS reveals no pertinent complaints other than HPI. ED EXAM, GI/ABD - Physical Exam Exam: See Below (see dictation) Course - Vital Signs Last Recorded V/S: Last Vital Signs Temp 97.4 F 05/31/19 14:24 Pulse 76 05/31/19 14:24 Resp 19 05/31/19 14:24 BP 176/110 H 05/31/19 14:24 Pulse Ox 96 05/31/19 14:24 - Orders/Labs/Meds Orders: Active Orders 24 hr Category Date Time Status Sodium Chloride 0.9% [Saline Flush] Med 05/31/19 15:01 Active 10 ml FLUSH ASDIRECTED PRN Sodium Chloride 0.9% [Saline Flush] Med 05/31/19 15:01 Active 2.5 ml FLUSH ASDIRECTED PRN Saline Lock Insert [OM.PC] Stat Oth 05/31/19 15:01 Ordered Medication Orders Sodium Chloride (Saline Flush) 10 ml FLUSH ASDIRECTED PRN PRN Reason: Keep Vein Open Sodium Chloride (Saline Flush) 2.5 ml FLUSH ASDIRECTED PRN PRN Reason: Keep Vein Open Labs: Laboratory Tests 05/31/19 05/31/19 05/31/19 Range/Units 15:10 15:10 15:10 WBC 13.10 H (4.0-11.0) K/uL RBC 5.61 (4.50-5.90) M/uL Hgb 16.3 (13.0-17.0) g/dL Hct 45.8 (38.0-50.0) % MCV 81.6 (80.0-98.0) fL MCH 29.1 (27.0-32.0) pg MCHC 35.6 (31.0-37.0) g/dL RDW Std Deviation 39.2 (28.0-62.0) fl RDW Coeff of Kalin 13 (11.0-15.0) % Plt Count 268 (150-400) K/uL MPV 8.60 (7.40-12.00) fL Neut % (Auto) 69.8 (48.0-80.0) % Lymph % (Auto) 20.9 (16.0-40.0) % [place] % (Auto) 8.5 (0.0-15.0) % Eos % (Auto) 0.6 (0.0-7.0) % Baso % (Auto) 0.2 (0.0-1.5) % Neut # (Auto) 9.1 H (1.4-5.7) K/uL Lymph # (Auto) 2.7 H (0.6-2.4) K/uL [place] # (Auto) 1.1 H (0.0-0.8) K/uL Eos # (Auto) 0.1 (0.0-0.7) K/uL Baso # (Auto) 0.0 (0.0-0.1) K/uL Nucleated RBC % 0.0 /100WBC Nucleated RBCs # 0 K/uL Sodium 128 L (136-148) mmol/L Potassium 4.0 (3.5-5.1) mmol/L Chloride 92 L (98-107) mmol/L Carbon Dioxide 23.0 (21.0-32.0) mmol/L BUN 23 H (7.0-18.0) mg/dL Creatinine 1.1 (0.8-1.3) mg/dL Est Cr Clr Drug Dosing 54.25 mL/min Estimated GFR (MDRD) > 60.0 ml/min Glucose 222 H (74-106) mg/dL Calcium 9.9 (8.5-10.1) mg/dL Total Bilirubin 0.6 (0.2-1.0) mg/dL AST 13 L (15-37) IU/L ALT 25 (14-63) IU/L Alkaline Phosphatase 109 (46-116) U/L Total Protein 8.0 (6.4-8.2) g/dL Albumin 4.3 (3.4-5.0) g/dL Globulin 3.7 (2.6-4.0) g/dL Albumin/Globulin Ratio 1.2 (0.9-1.6) Urine Color YELLOW Urine Appearance SLT CLOUDY Urine pH 6.0 (5.0-8.0) Ur Specific [place] 1.025 (1.001-1.035) Urine Protein 100 H (NEGATIVE) mg/dL Urine Glucose (UA) >=1000 (NEGATIVE) mg/dL Urine Ketones NEGATIVE (NEGATIVE) mg/dL Urine Occult Blood MODERATE H (NEGATIVE) Urine Nitrite NEGATIVE (NEGATIVE) Urine Bilirubin NEGATIVE (NEGATIVE) Urine Urobilinogen 0.2 (<2.0) EU/dL Ur Leukocyte Esterase NEGATIVE (NEGATIVE) Urine RBC 3-6 (0-2/HPF) Urine WBC 0-3 (0-5/HPF) Ur Epithelial Cells RARE (NONE-FEW) Urine Bacteria RARE (NEGATIVE) Urine Mucus LIGHT (NONE-MOD) Meds: Medications Generic Name Dose Route Start Last Admin Trade Name Freq PRN Reason Stop Dose Admin Sodium Chloride 10 ml 05/31/19 15:01 Saline Flush FLUSH ASDIRECTED PRN Keep Vein Open Sodium Chloride 2.5 ml 05/31/19 15:01 Saline Flush FLUSH ASDIRECTED PRN Keep Vein Open Discontinued Medications Generic Name Dose Route Start Last Admin Trade Name Freq PRN Reason Stop Dose Admin Sodium Chloride 1,000 mls @ 999 mls/hr 05/31/19 15:01 05/31/19 15:16 Normal Saline IV 05/31/19 16:01 999 mls/hr STAT ONE Administration Iopamidol 100 ml 05/31/19 17:58 05/31/19 17:58 Isovue Multipack-370 (76%) IVPUSH 05/31/19 17:59 100 ml ONETIME ONE Administration Ondansetron HCl 4 mg 05/31/19 16:05 05/31/19 16:21 Zofran IVPUSH 05/31/19 16:06 4 mg ONETIME ONE Administration Departure - Departure Time of Disposition: 19:53 Disposition: Home, Self-Care 01 Condition: Good Clinical Impression: Bladder obstruction, Abdominal pain - Discharge Information Referrals: PCP,Unknown [Primary Care Provider] - Rowan Curry MD [Physician] - 3 Days Forms: ED Department Discharge Additional Instructions: The following information is given to patients seen in the emergency department who are being discharged to home. This information is to outline your options for follow-up care. We provide all patients seen in our emergency department with a follow-up referral. The need for follow-up, as well as the timing and circumstances, are variable depending upon the specifics of your emergency department visit. If you don't have a primary care physician on staff, we will provide you with a referral. We always advise you to contact your personal physician following an emergency department visit to inform them of the circumstance of the visit and for follow-up with them and/or the need for any referrals to a consulting specialist. The emergency department will also refer you to a specialist when appropriate. This referral assures that you have the opportunity for follow-up care with a specialist. All of these measure are taken in an effort to provide you with optimal care, which includes your follow-up. Under all circumstances we always encourage you to contact your private physician who remains a resource for coordinating your care. When calling for follow-up care, please make the office aware that this follow-up is from your recent emergency room visit. If for any reason you are refused follow-up, please contact the [facility] Emergency Department at and asked to speak to the emergency department charge nurse. [facility] [address] [place] [id number] [address] [facility] - Urology [address] [place] [id number] Curry, a referral has been made but please call the number provided to confirm an appointment Return to ED as needed as discussed - My Orders Last 24 Hours: My Active Orders 05/31/19 15:01 Sodium Chloride 0.9% [Saline Flush] 10 ml FLUSH ASDIRECTED PRN Sodium Chloride 0.9% [Saline Flush] 2.5 ml FLUSH ASDIRECTED PRN Saline Lock Insert [OM.PC] Stat - Assessment/Plan Last 24 Hours: My Active Orders 05/31/19 15:01 Sodium Chloride 0.9% [Saline Flush] 10 ml FLUSH ASDIRECTED PRN Sodium Chloride 0.9% [Saline Flush] 2.5 ml FLUSH ASDIRECTED PRN Saline Lock Insert [OM.PC] Stat
[2019-05-31 15:40] LABS: CHLORIDE,CL 92 mmol/L (98-107); SODIUM,NA 128 mmol/L (136-148)
[2019-05-31] MEDS ORDERED: Ondansetron 4 MG/2 ML SDV IVPUSH ONE (16:05)
--- NOTE | 2019-05-31 16:11 | CR ---
EXAMINATION: Portable chest radiograph. HISTORY: Shortness of breath. FINDINGS: The trachea is midline. The cardiomediastinal silhouette is within normal limits. No pulmonary infiltrates, effusions or pneumothorax. Osseous structures appear unremarkable. IMPRESSION: No acute cardiopulmonary process.
[2019-05-31] MEDS ORDERED: Iopamidol 755 MG/ML 500 ML Multipack Bottle IVPUSH ONE (17:58)
--- NOTE | 2019-05-31 18:38 | CT ---
INDICATION: Lower abdominal pain TECHNIQUE: CT abdomen and pelvis acquired with 100 cc Isovue 370 intravenous contrast. COMPARISON: None. FINDINGS: Lower chest: 4 millimeter pulmonary nodule right lower lobe, noncalcified. In a low risk patient, no further follow-up is required. In a high-risk patient, follow-up chest CT recommended in 12 months. Coronary atherosclerosis. Liver: Unremarkable. Normal in size and attenuation. No masses. Gallbladder and bile ducts: Solitary density within the gallbladder, likely a small gallstone without gallbladder wall thickening or pericholecystic inflammation. Pancreas: Unremarkable. No mass or inflammation. Spleen: Unremarkable. Normal in size. No masses. Adrenal glands: Unremarkable. No nodules. Kidneys: Symmetric enhancement with exophytic cyst upper pole left cyst measuring 6.7 centimeters. Moderate to marked bilateral hydronephrosis extending to the level of the bladder. GI tract: The stomach is unremarkable. No dilated loops of large or small intestine. 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 Lymph nodes: No lymphadenopathy. Omentum/Peritoneum/Abdominal Wall: Rim calcified mesenteric lesion measuring 2.0 centimeters, possibly an old area of fat necrosis. Pelvis: Patient appears to be status post transurethral prostate resection with marked distention of the bladder with minimal subcentimeter bladder diverticula. Bladder extends above the level of the umbilicus. Bones: Degenerative disc disease thoracolumbar spine with anterolisthesis L4-5 measuring 6 millimeters. IMPRESSION: 1. Marked bladder distention with associated moderate to marked bilateral hydronephrosis suspicious for bladder outlet obstruction. 2. Cholelithiasis without CT evidence of cholecystitis. 3. Other incidental findings as noted above. Please note that all CT scans at this facility use dose modulation, iterative reconstruction, and/or weight-based dosing when appropriate to reduce radiation dose to as low as reasonably achievable. Dictated by Larry Simms MD @ May 31 2019 6:23PM Signed by Dr. Larry Simms @ May 31 2019 6:36PM
[2019-05-31 20:16] VITALS: BP 127/82
== END 2019-05-31 20:18 | disposition home or self-care (01) ==
LOC: MW.ED 13:58
DX: N32.0 Bladder-neck obstruction (principal); I25.10 Atherosclerotic heart disease of native coronary artery without angina pectoris; E78.00 Pure hypercholesterolemia, unspecified; E11.42 Type 2 diabetes mellitus with diabetic polyneuropathy; E03.9 Hypothyroidism, unspecified; Z79.84 Long term (current) use of oral hypoglycemic drugs; Z79.899 Other long term (current) drug therapy; Z79.82 Long term (current) use of aspirin
CPT/HCPCS: 36415; 71045; 74177; 80053; 81001; 85025; 96361; 96374; 99284; J2405; J7040; Q9967

== ENCOUNTER 2019-06-02 23:47 | Observation (INO) | payer MEDICARE, OTHER ==
[~2019-06-02 23:47] MED LIST changes: -Lactated Ringers 1,000 ML IV SCH; +Sodium Chloride 0.9% 1,000 ML IV SCH; -Sodium Chloride 0.9% 10 ML Syringe FLUSH PRN; -ceFAZolin 2 GM in Premix Bag 1 BAG IV ONE
[2019-06-02] MEDS ORDERED: Ondansetron 4 MG/2 ML SDV IVPUSH ONE (23:58)
--- NOTE | 2019-06-03 00:26 | EDM.PDOC ---
ED HPI GENERAL MEDICAL PROBLEM - General Chief Complaint: Gastrointestinal Problem Stated Complaint: PT VOMITING Time Seen by Provider: 06/03/19 01:05 - History of Present Illness INITIAL COMMENTS - FREE TEXT/NARRATIVE: HISTORY AND PHYSICAL: History of present illness: Patient 73-year-old white male was seen 2 days prior for abdominal pain nausea and vomiting and was diagnosed with acute urinary retention he was sent home with Vargas leg bag returns today with emesis 2 he denies abdominal pain fever chills or other complaints. Review of systems: As per history of present illness and below otherwise all systems reviewed and negative. Past medical history: As per history of present illness and as reviewed below otherwise noncontributory. Surgical history: As per history of present illness and as reviewed below otherwise noncontributory. Social history: No reported history of drug or alcohol abuse. Family history: As per history of present illness and as reviewed below otherwise noncontributory. Physical exam: HEENT: Atraumatic, normocephalic, pupils reactive, negative for conjunctival pallor or scleral icterus, mucous membranes moist, throat clear, neck supple, nontender, trachea midline. Lungs: Clear to auscultation, breath sounds equal bilaterally, chest nontender. Heart: S1S2, regular, negative for clicks, rubs, or JVD. Abdomen: Soft, nondistended, nontender. Negative for masses or hepatosplenomegaly. Negative for costovertebral tenderness. Pelvis: Stable nontender. Genitourinary: Vargas catheter and leg bag in place Rectal: Deferred. Extremities: Atraumatic, negative for cords or calf pain. Neurovascular unremarkable. Neuro: Awake, alert, oriented. Cranial nerves II through XII unremarkable. Cerebellum unremarkable. Motor and sensory unremarkable throughout. Exam nonfocal. Diagnostics: CBC CMP and lipase UA acute abdominal series with chest x-ray EKG Therapeutics: Saline 1 L bolus Zofran 4 mg IV Impression: #1 vomiting #2 history of urinary retention Definitive disposition and diagnosis as appropriate pending reevaluation and review of above. - Related Data Allergies Allergy/AdvReac Type Severity Reaction Status Date / Time No Known Allergies Allergy Verified 06/02/19 23:54 Home Meds: Home Meds Aspirin 325 mg PO DAILY 04/17/17 [History] Gemfibrozil 600 mg PO BID 04/17/17 [History] Levothyroxine 150 mcg PO ACBREAKFAST 04/17/17 [History] Metoprolol Succinate [Toprol XL] 25 mg PO DAILY 04/17/17 [History] Simvastatin [Zocor] 20 mg PO BEDTIME 04/17/17 [History] amLODIPine [Norvasc] 2.5 mg PO QAM 04/27/18 [History] Glimepiride [Amaryl] 2 mg PO QAM 02/03/19 [History] Sertraline HCl 50 mg PO DAILY 02/03/19 [History] Tolterodine Tartrate 2 mg PO BEDTIME 02/03/19 [History] Zolpidem Tartrate 10 mg PO BEDTIME 02/03/19 [History] Past Medical History HEENT History: Reports: Other (See Below) Other HEENT History: has upper and lower dental plate Cardiovascular History: Reports: CAD, High Cholesterol, Stents Respiratory History: Reports: Sleep Apnea Other Respiratory History: had sleep apnea- lost weight- no CPAP for the last 7 years Gastrointestinal History: Reports: Diverticulosis Genitourinary History: Reports: BPH, Other (See Below) Other Genitourinary History: hx of ESBL Musculoskeletal History: Reports: RA Neurological History: Reports: Neuropathy, Peripheral, Vertigo Other Neuro History: hx of positional vertigo Psychiatric History: Reports: Depression Endocrine/Metabolic History: Reports: Diabetes, Type II, Hypothyroidism, Obesity /BMI 30+ Hematologic History: Reports: None Immunologic History: Reports: Other (See Below) Other Immunologic History: hx ESBL (extended spectrum beta-lactamase Oncologic (Cancer) History: Reports: Thyroid Dermatologic History: Reports: None - Infectious Disease History Infectious Disease History: Reports: Chicken Pox, Measles, Mumps - Past Surgical History Head Surgeries/Procedures: Reports: None HEENT Surgical History: Reports: Oral Surgery Other HEENT Surgeries/Procedures: has 4 dental implants (upper plate connects to dental pins) Cardiovascular Surgical History: Reports: Coronary Artery Stent Other Cardiovascular Surgeries/Procedures: angioplasty with 1 stent in 1995 GI Surgical History: Reports: Colonoscopy, EGD Male Surgical History: Reports: TURP-Transurethral Resection of Prostate Endocrine Surgical History: Reports: Thyroidectomy Musculoskeletal Surgical History: Reports: Carpal Tunnel, Shoulder Surgery Other Musculoskeletal Surgeries/Procedures:: left Total Shoulder Arthroplasty, Carpal tunnel release on 02/17/19 Oncologic Surgical History: Reports: Other (See Below) Other Oncologic Surgeries/Procedures: Thyroidectomy Social & Family History - Family History Family Medical History: Noncontributory - Tobacco Use Smoking Status *Q: Never Smoker - Caffeine Use Caffeine Use: Reports: Coffee Caffeine Use Comment: 2cups/day - Recreational Drug Use Recreational Drug Use: No ED ROS GENERAL - Review of Systems Review Of Systems: ROS reveals no pertinent complaints other than HPI. ED EXAM, GENERAL - Physical Exam Exam: See Below (See dictation) Course - Vital Signs Last Recorded V/S: Last Vital Signs Temp 35.7 C 06/02/19 23:59 Pulse 99 06/02/19 23:59 Resp 18 06/02/19 23:59 BP 140/86 06/02/19 23:59 Pulse Ox 94 L 06/02/19 23:59 - Orders/Labs/Meds Orders: Active Orders 24 hr Category Date Time Status EKG Documentation Completion [RC] STAT Care 06/02/19 23:58 Active UA W/MICROSCOPIC [URIN] Stat Lab 06/03/19 01:03 Ordered Sodium Chloride 0.9% [Normal Saline] 1,000 ml Med 06/02/19 23:45 Active IV ASDIRECTED Medication Orders Sodium Chloride (Normal Saline) 1,000 mls @ 999 mls/hr IV ASDIRECTED DENY Last Admin: 06/03/19 00:11 Dose: 999 mls/hr Labs: Laboratory Tests 06/03/19 06/03/19 Range/Units 00:10 00:10 WBC 13.29 H (4.0-11.0) K/uL RBC 5.43 (4.50-5.90) M/uL Hgb 15.8 (13.0-17.0) g/dL Hct 44.8 (38.0-50.0) % MCV 82.5 (80.0-98.0) fL MCH 29.1 (27.0-32.0) pg MCHC 35.3 (31.0-37.0) g/dL RDW Std Deviation 39.5 (28.0-62.0) fl RDW Coeff of Kalin 13 (11.0-15.0) % Plt Count 280 (150-400) K/uL MPV 9.00 (7.40-12.00) fL Neut % (Auto) 69.4 (48.0-80.0) % Lymph % (Auto) 19.5 (16.0-40.0) % [place] % (Auto) 8.6 (0.0-15.0) % Eos % (Auto) 2.2 (0.0-7.0) % Baso % (Auto) 0.3 (0.0-1.5) % Neut # (Auto) 9.2 H (1.4-5.7) K/uL Lymph # (Auto) 2.6 H (0.6-2.4) K/uL [place] # (Auto) 1.1 H (0.0-0.8) K/uL Eos # (Auto) 0.3 (0.0-0.7) K/uL Baso # (Auto) 0.0 (0.0-0.1) K/uL Nucleated RBC % 0.0 /100WBC Nucleated RBCs # 0 K/uL Sodium 128 L (136-148) mmol/L Potassium 3.9 (3.5-5.1) mmol/L Chloride 93 L (98-107) mmol/L Carbon Dioxide 25.5 (21.0-32.0) mmol/L BUN 28 H (7.0-18.0) mg/dL Creatinine 1.2 (0.8-1.3) mg/dL Est Cr Clr Drug Dosing TNP Estimated GFR (MDRD) 59.0 ml/min Glucose 212 H (74-106) mg/dL Calcium 9.3 (8.5-10.1) mg/dL Total Bilirubin 0.8 (0.2-1.0) mg/dL AST 14 L (15-37) IU/L ALT 27 (14-63) IU/L Alkaline Phosphatase 105 (46-116) U/L Total Protein 7.3 (6.4-8.2) g/dL Albumin 4.0 (3.4-5.0) g/dL Globulin 3.3 (2.6-4.0) g/dL Albumin/Globulin Ratio 1.2 (0.9-1.6) Lipase 137 (73-393) U/L Meds: Medications Generic Name Dose Route Start Last Admin Trade Name Freq PRN Reason Stop Dose Admin Sodium Chloride 1,000 mls @ 999 mls/hr 06/02/19 23:45 06/03/19 00:11 Normal Saline IV 999 mls/hr ASDIRECTED DENY Administration Discontinued Medications Generic Name Dose Route Start Last Admin Trade Name Rhys PRN Reason Stop Dose Admin Ondansetron HCl 4 mg 06/02/19 23:58 06/03/19 00:12 Zofran IVPUSH 06/02/19 23:59 4 mg ONETIME ONE Administration Ondansetron HCl 4 mg 06/03/19 00:57 06/03/19 01:02 Zofran IVPUSH 06/03/19 00:58 4 mg ONETIME ONE Administration Departure - Departure Time of Disposition: 01:05 Disposition: Refer to Observation Condition: Good Clinical Impression: Vomiting, Hyponatremia - Discharge Information Referrals: Kodi Quiroz MD [Primary Care Provider] - Forms: ED Department Discharge - My Orders Last 24 Hours: My Active Orders 06/02/19 23:45 Sodium Chloride 0.9% [Normal Saline] 1,000 ml IV ASDIRECTED 06/02/19 23:58 EKG Documentation Completion [RC] STAT 06/03/19 01:03 UA W/MICROSCOPIC [URIN] Stat - Assessment/Plan Last 24 Hours: My Active Orders 06/02/19 23:45 Sodium Chloride 0.9% [Normal Saline] 1,000 ml IV ASDIRECTED 06/02/19 23:58 EKG Documentation Completion [RC] STAT 06/03/19 01:03 UA W/MICROSCOPIC [URIN] Stat
[2019-06-03 00:39] LABS: CHLORIDE,CL 93 mmol/L (98-107); SODIUM,NA 128 mmol/L (136-148)
[2019-06-03] MEDS ORDERED: Ondansetron 4 MG/2 ML SDV IVPUSH ONE (00:57)
--- NOTE | 2019-06-03 01:01 | CR ---
Indication: Abdominal pain and nausea Technique: A frontal view of the chest and three views of the abdomen Comparison: A CT scan dated 05/31/2019 Findings/Impression: Cardiovascular and mediastinum: Heart size and vasculature are normal in caliber and appearance. Mediastinum is within normal limits. Lungs and pleural space: An elevated right hemidiaphragm. No consolidation or pleural effusions. Abdomen: A nonobstructive bowel gas pattern. Moderate colonic stool. No suspicious calcifications seen. Bones and soft tissues: A left shoulder arthroplasty. Degenerative changes in the spine. Dictated by Gurmeet Ramsay MD @ 06/03/2019 12:59:29 AM Dictated by: Gurmeet Ramsay MD @ 06/03/2019 00:59:38 (Electronically Signed)
[2019-06-03] MEDS: Sodium Chloride 0.9% 1,000 ML IV SCH ×3 (03:20→19:25)
[2019-06-03] MEDS: Ondansetron 4 MG/2 ML SDV IVPUSH PRN (04:35)
--- NOTE | 2019-06-03 07:02 | PCM.HP ---
H&P History of Present Illness - General Date of Service: 06/03/19 Admit Problem/Dx: Admission Diagnosis/Problem Admission Diagnosis/Problem Vomiting Source of Information: Patient History Limitations: Reports: No Limitations - History of Present Illness Initial Comments - Free Text/Narative: The patient is a 73-year-old gentleman who had been in admitted late yesterday evening after presenting to the emergency department complaining of abdominal pain and nausea and vomiting. The patient also has been having urinary retention secondary to chronic urinary tract infection and he is pending evaluation by urology. The patient currently has a indwelling Vargas catheter and has had a leg bag. The patient has a history of ESBL urinary tract infections. The patient today says that he has not vomited. He has denied any hematemesis. Abdominal pain is also improved. Onset of Symptoms: Reports: Gradual Duration of Symptoms: Reports: Day(s): Location: Reports: Abdomen Quality: Reports: Stabbing, Throbbing Severity: Moderate Improves with: Reports: None Worsens with: Reports: None 0 Pain Score (Numeric/FACES): 0 - Related Data Allergies/Adverse Reactions: Allergies Allergy/AdvReac Type Severity Reaction Status Date / Time No Known Allergies Allergy Verified 06/03/19 07:44 Home Medications: Home Meds Aspirin 325 mg PO DAILY 04/17/17 [History] Gemfibrozil 600 mg PO BID 04/17/17 [History] Levothyroxine 150 mcg PO ACBREAKFAST 04/17/17 [History] Metoprolol Succinate [Toprol XL] 25 mg PO DAILY 04/17/17 [History] Simvastatin [Zocor] 20 mg PO BEDTIME 04/17/17 [History] amLODIPine [Norvasc] 2.5 mg PO QAM 04/27/18 [History] Glimepiride [Amaryl] 2 mg PO QAM 02/03/19 [History] Sertraline HCl 50 mg PO DAILY 02/03/19 [History] Tolterodine Tartrate 2 mg PO BEDTIME 02/03/19 [History] Zolpidem Tartrate 10 mg PO BEDTIME 02/03/19 [History] Amoxicillin/Potassium Clav [Amox Tr-K Clv 875-125 mg Tab] 1 each PO Q12HR [History] Pioglitazone [Actos] 15 mg PO DAILY 06/03/19 [History] metFORMIN [Glucophage] 850 mg PO BIDMEALS 06/03/19 [History] Past Medical History HEENT History: Reports: Other (See Below) Other HEENT History: has upper and lower dental plate Cardiovascular History: Reports: CAD, High Cholesterol, Stents Respiratory History: Reports: Sleep Apnea Other Respiratory History: had sleep apnea- lost weight- no CPAP for the last 7 years Gastrointestinal History: Reports: Diverticulosis Genitourinary History: Reports: BPH, Retention, Urinary, Other (See Below) Other Genitourinary History: hx of ESBL Musculoskeletal History: Reports: RA Neurological History: Reports: Neuropathy, Peripheral, Vertigo Other Neuro History: hx of positional vertigo Psychiatric History: Reports: Depression Endocrine/Metabolic History: Reports: Diabetes, Type II, Hypothyroidism, Obesity /BMI 30+ Hematologic History: Reports: None Immunologic History: Reports: Other (See Below) Other Immunologic History: hx ESBL (extended spectrum beta-lactamase Oncologic (Cancer) History: Reports: Thyroid Dermatologic History: Reports: None - Infectious Disease History Infectious Disease History: Reports: Chicken Pox, Measles, Mumps - Past Surgical History Head Surgeries/Procedures: Reports: None HEENT Surgical History: Reports: Oral Surgery Other HEENT Surgeries/Procedures: has 4 dental implants (upper plate connects to dental pins) Cardiovascular Surgical History: Reports: Coronary Artery Stent Other Cardiovascular Surgeries/Procedures: angioplasty with 1 stent in 1995 GI Surgical History: Reports: Colonoscopy, EGD Male Surgical History: Reports: TURP-Transurethral Resection of Prostate Endocrine Surgical History: Reports: Thyroidectomy Musculoskeletal Surgical History: Reports: Carpal Tunnel, Shoulder Surgery Other Musculoskeletal Surgeries/Procedures:: left Total Shoulder Arthroplasty, Carpal tunnel release on 02/17/19 Oncologic Surgical History: Reports: Other (See Below) Other Oncologic Surgeries/Procedures: Thyroidectomy Social & Family History - Family History Family Medical History: Noncontributory Dermatologic: Reports: Other (See Below) Other Dermatologic Family History: skin cancer, dad Oncologic: Reports: Brain, Other (See Below) Other Oncologic Family History: internal organ, mom - Tobacco Use Smoking Status *Q: Never Smoker - Caffeine Use Caffeine Use: Reports: Coffee, Other Other Caffeine Use: Powerade Caffeine Use Comment: 2cups/day - Recreational Drug Use Recreational Drug Use: No - Living Situation & Occupation Living situation: Reports: , with Family Occupation: Retired H&P Review of Systems - Review of Systems: Review Of Systems: See Below General: Reports: Weakness HEENT: Reports: No Symptoms Pulmonary: Reports: No Symptoms Cardiovascular: Reports: No Symptoms Gastrointestinal: Reports: Abdominal Pain, Nausea, Vomiting Genitourinary: Reports: Retention, Other (Indwelling Vargas) Musculoskeletal: Reports: No Symptoms Skin: Reports: No Symptoms Psychiatric: Reports: No Symptoms Neurological: Reports: No Symptoms Hematologic/Lymphatic: Reports: No Symptoms Immunologic: Reports: No Symptoms Exam - Exam Exam: See Below - Vital Signs Vital Signs: Last Vital Signs Temp 36.4 C 06/03/19 04:00 Pulse 77 06/03/19 04:00 Resp 16 06/03/19 04:00 BP 133/71 06/03/19 04:00 Pulse Ox 93 L 06/03/19 04:00 Weight: 90.764 kg - Exam Quality Assessment: Urinary Catheter. No: Supplemental Oxygen General: Alert, Oriented, Cooperative HEENT: Conjunctiva Clear, EACs Clear, Mucosa Moist & Malo, Nares Patent, Pupils Equal, Other Neck: Supple, Trachea Midline Lungs: Clear to Auscultation, Normal Respiratory Effort Cardiovascular: Regular Rate, Regular Rhythm GI/Abdominal Exam: Normal Bowel Sounds, Soft, Non-Tender, No Distention. No: Guarding, Rigid, Rebound Back Exam: Normal Inspection, Full Range of Motion Extremities: Normal Inspection, No Pedal Edema Skin: Warm, Dry, Intact Neurological: Cranial Nerves Intact Neuro Extensive - Mental Status: Alert, Oriented x3 Psychiatric: Alert, Normal Affect, Normal Mood - Patient Data Lab Results Last 24 hrs: Laboratory Results - last 24 hr 06/03/19 06/03/19 06/03/19 Range/Units 00:10 00:10 01:15 WBC 13.29 H (4.0-11.0) K/uL RBC 5.43 (4.50-5.90) M/uL Hgb 15.8 (13.0-17.0) g/dL Hct 44.8 (38.0-50.0) % MCV 82.5 (80.0-98.0) fL MCH 29.1 (27.0-32.0) pg MCHC 35.3 (31.0-37.0) g/dL RDW Std Deviation 39.5 (28.0-62.0) fl RDW Coeff of Kalin 13 (11.0-15.0) % Plt Count 280 (150-400) K/uL MPV 9.00 (7.40-12.00) fL Neut % (Auto) 69.4 (48.0-80.0) % Lymph % (Auto) 19.5 (16.0-40.0) % [place] % (Auto) 8.6 (0.0-15.0) % Eos % (Auto) 2.2 (0.0-7.0) % Baso % (Auto) 0.3 (0.0-1.5) % Neut # (Auto) 9.2 H (1.4-5.7) K/uL Lymph # (Auto) 2.6 H (0.6-2.4) K/uL [place] # (Auto) 1.1 H (0.0-0.8) K/uL Eos # (Auto) 0.3 (0.0-0.7) K/uL Baso # (Auto) 0.0 (0.0-0.1) K/uL Nucleated RBC % 0.0 /100WBC Nucleated RBCs # 0 K/uL Sodium 128 L (136-148) mmol/L Potassium 3.9 (3.5-5.1) mmol/L Chloride 93 L (98-107) mmol/L Carbon Dioxide 25.5 (21.0-32.0) mmol/L BUN 28 H (7.0-18.0) mg/dL Creatinine 1.2 (0.8-1.3) mg/dL Est Cr Clr Drug Dosing TNP Estimated GFR (MDRD) 59.0 ml/min Glucose 212 H (74-106) mg/dL POC Glucose (60-110) mg/dL Calcium 9.3 (8.5-10.1) mg/dL Total Bilirubin 0.8 (0.2-1.0) mg/dL AST 14 L (15-37) IU/L ALT 27 (14-63) IU/L Alkaline Phosphatase 105 (46-116) U/L Total Protein 7.3 (6.4-8.2) g/dL Albumin 4.0 (3.4-5.0) g/dL Globulin 3.3 (2.6-4.0) g/dL Albumin/Globulin Ratio 1.2 (0.9-1.6) Lipase 137 (73-393) U/L Urine Color YELLOW Urine Appearance SLT CLOUDY Urine pH 6.5 (5.0-8.0) Ur Specific [place] 1.020 (1.001-1.035) Urine Protein 100 H (NEGATIVE) mg/dL Urine Glucose (UA) 500 H (NEGATIVE) mg/dL Urine Ketones NEGATIVE (NEGATIVE) mg/dL Urine Occult Blood MODERATE H (NEGATIVE) Urine Nitrite NEGATIVE (NEGATIVE) Urine Bilirubin NEGATIVE (NEGATIVE) Urine Urobilinogen 0.2 (<2.0) EU/dL Ur Leukocyte Esterase MODERATE H (NEGATIVE) Urine RBC 8-11 (0-2/HPF) Urine WBC 8-10 (0-5/HPF) Ur Epithelial Cells RARE (NONE-FEW) Urine Bacteria FEW (NEGATIVE) 06/03/19 Range/Units 06:11 WBC (4.0-11.0) K/uL RBC (4.50-5.90) M/uL Hgb (13.0-17.0) g/dL Hct (38.0-50.0) % MCV (80.0-98.0) fL MCH (27.0-32.0) pg MCHC (31.0-37.0) g/dL RDW Std Deviation (28.0-62.0) fl RDW Coeff of Kalin (11.0-15.0) % Plt Count (150-400) K/uL MPV (7.40-12.00) fL Neut % (Auto) (48.0-80.0) % Lymph % (Auto) (16.0-40.0) % [place] % (Auto) (0.0-15.0) % Eos % (Auto) (0.0-7.0) % Baso % (Auto) (0.0-1.5) % Neut # (Auto) (1.4-5.7) K/uL Lymph # (Auto) (0.6-2.4) K/uL [place] # (Auto) (0.0-0.8) K/uL Eos # (Auto) (0.0-0.7) K/uL Baso # (Auto) (0.0-0.1) K/uL Nucleated RBC % /100WBC Nucleated RBCs # K/uL Sodium (136-148) mmol/L Potassium (3.5-5.1) mmol/L Chloride (98-107) mmol/L Carbon Dioxide (21.0-32.0) mmol/L BUN (7.0-18.0) mg/dL Creatinine (0.8-1.3) mg/dL Est Cr Clr Drug Dosing Estimated GFR (MDRD) ml/min Glucose (74-106) mg/dL POC Glucose 171 H (60-110) mg/dL Calcium (8.5-10.1) mg/dL Total Bilirubin (0.2-1.0) mg/dL AST (15-37) IU/L ALT (14-63) IU/L Alkaline Phosphatase (46-116) U/L Total Protein (6.4-8.2) g/dL Albumin (3.4-5.0) g/dL Globulin (2.6-4.0) g/dL Albumin/Globulin Ratio (0.9-1.6) Lipase (73-393) U/L Urine Color Urine Appearance Urine pH (5.0-8.0) Ur Specific [place] (1.001-1.035) Urine Protein (NEGATIVE) mg/dL Urine Glucose (UA) (NEGATIVE) mg/dL Urine Ketones (NEGATIVE) mg/dL Urine Occult Blood (NEGATIVE) Urine Nitrite (NEGATIVE) Urine Bilirubin (NEGATIVE) Urine Urobilinogen (<2.0) EU/dL Ur Leukocyte Esterase (NEGATIVE) Urine RBC (0-2/HPF) Urine WBC (0-5/HPF) Ur Epithelial Cells (NONE-FEW) Urine Bacteria (NEGATIVE) Result Diagrams: 06/03/19 00:10 06/03/19 00:10 - Problem List (1) UTI, Urinary tract infectious disease SNOMED Code(s): 61011320 ICD Code: N39.0 - URINARY TRACT INFECTION, SITE NOT SPECIFIED Status: Acute Priority: High Current Visit: Yes (2) Bladder obstruction SNOMED Code(s): 72198428 ICD Code: N32.0 - BLADDER-NECK OBSTRUCTION Status: Acute Priority: High Current Visit: Yes Problem Details: Indwelling Vargas catheter (3) Vomiting SNOMED Code(s): 239587613 ICD Code: R11.10 - VOMITING, UNSPECIFIED Status: Acute Priority: High Current Visit: Yes (4) Hyponatremia SNOMED Code(s): 03262550 ICD Code: E87.1 - HYPO-OSMOLALITY AND HYPONATREMIA Status: Acute Priority : High Current Visit: Yes Problem List Initiated/Reviewed/Updated: Yes Orders Last 24hrs: Active Orders 24 hr Category Date Time Status Patient Status [ADT] Stat ADT 06/03/19 01:06 Active Blood Glucose Check, Bedside [RC] QIDACANDBED Care 06/03/19 07:30 Active NPO [Nothing Per Oral Diet] [DIET] Diet 06/03/19 Breakfast Active Insulin Aspart [NovoLOG] Med 06/03/19 07:30 Active See Protocol SUBCUT ACBED Ondansetron [Zofran] Med 06/03/19 02:13 Active 4 mg IVPUSH Q6H PRN Sodium Chloride 0.9% [Normal Saline] 1,000 ml Med 06/02/19 23:45 Active IV ASDIRECTED Sodium Chloride 0.9% [Normal Saline] 1,000 ml Med 06/03/19 02:15 Active IV ASDIRECTED Medication Orders Sodium Chloride (Normal Saline) 1,000 mls @ 999 mls/hr IV ASDIRECTED [facility] Last Admin: 06/03/19 00:11 Dose: 999 mls/hr Sodium Chloride (Normal Saline) 1,000 mls @ 125 mls/hr IV ASDIRECTED DENY Last Admin: 06/03/19 03:20 Dose: 125 mls/hr Insulin Aspart (Novolog) 0 unit SUBCUT ACBED [facility]; Protocol Ondansetron HCl (Zofran) 4 mg IVPUSH Q6H PRN PRN Reason: Nausea/Vomiting Last Admin: 06/03/19 04:35 Dose: 4 mg Assessment/Plan Comment:: The patient is a 73-year-old gentleman who presented to the emergency department complaining predominantly of vomiting. The patient had an ear infection had been treated with amoxicillin. I discontinued this. The patient also has evidence of a urinary tract infection and I've change the patient's antibiotics to Rocephin. Patient previously had in February 2019 and infection with Klebsiella pneumoniae which was sensitive to Rocephin. The patient also had been noted to have hyponatremia and the patient will be kept on IV fluids as the sodium is likely secondary to his vomiting. The patient will be given Zofran for the nausea and vomiting that he has had. I've ordered repeat laboratory testing. The patient's indwelling Vargas catheter will be retained. Anticipated that he should be appropriate for discharge in 1-2 days. I've encouraged him ambulate. He is also been ordered to have Lovenox for DVT prophylaxis.
[2019-06-03] MEDS ORDERED: oxyCODONE 5 MG Tab PO PRN (07:04)
[2019-06-03] MEDS ORDERED: Docusate Sodium 100 MG Cap PO PRN (07:04)
[2019-06-03] MEDS ORDERED: Ondansetron 4 MG Tab.DIS PO PRN (07:04)
[2019-06-03] MEDS ORDERED: Acetaminophen 325 MG Tab PO PRN (07:04)
[2019-06-03] MEDS: Insulin Aspart 100 Units/ML 3 ML Pen SUBCUT SCH ×4 (07:22→21:51)
[2019-06-03] MEDS: Heparin Sodium 5,000 Units/ML Vial SUBCUT SCH ×3 (08:56→23:55)
[2019-06-03] MEDS: cefTRIAXone 1 GM in Sodium Chloride 0.9% 50 ML IV SCH (10:50)
[2019-06-03] MEDS ORDERED: Simvastatin 20 MG Tab PO SCH (21:00)
[2019-06-03] MEDS ORDERED: Amoxicillin/Clavulanate K 875-125 MG Tab PO SCH (21:00)
[2019-06-03] MEDS ORDERED: Zolpidem Tartrate 10 MG PO SCH (21:00)
[2019-06-03] MEDS: Gemfibrozil 600 MG Tab PO SCH (21:40)
[2019-06-04] MEDS: Ondansetron 4 MG/2 ML SDV IVPUSH PRN (01:20)
[2019-06-04] MEDS: Sodium Chloride 0.9% 1,000 ML IV SCH (03:30)
[2019-06-04 06:16] LABS: CHLORIDE,CL 101 mmol/L (98-107); SODIUM,NA 134 mmol/L (136-148)
[2019-06-04] MEDS: Heparin Sodium 5,000 Units/ML Vial SUBCUT SCH (06:52)
[2019-06-04] MEDS: Insulin Aspart 100 Units/ML 3 ML Pen SUBCUT SCH ×2 (07:18→12:42)
[2019-06-04] MEDS ORDERED: Levothyroxine 150 MCG Tab PO SCH (07:30)
[2019-06-04] MEDS ORDERED: Aspirin 325 MG Tab PO SCH (09:00)
[2019-06-04] MEDS ORDERED: amLODIPine 2.5 MG Tab PO SCH (09:00)
[2019-06-04] MEDS ORDERED: Pioglitazone 15 MG Tab PO SCH (09:00)
[2019-06-04] MEDS ORDERED: Glimepiride 2 MG Tab PO SCH (09:00)
[2019-06-04] MEDS ORDERED: Metoprolol Succinate 25 MG Tab.ER PO SCH (09:00)
[2019-06-04] MEDS ORDERED: Sertraline 50 MG Tab PO SCH (09:00)
[2019-06-04] MEDS: Gemfibrozil 600 MG Tab PO SCH (09:19)
[2019-06-04 09:22] VITALS: BP 123/88
[2019-06-04] MEDS: cefTRIAXone 1 GM in Sodium Chloride 0.9% 50 ML IV SCH (09:31)
--- NOTE | 2019-06-04 10:38 | PCM.DCSUM1 ---
Discharge Summary - Hospital Course Diagnosis: Stroke: No - Discharge Data Discharge Date: 06/04/19 Discharge Disposition: Home, Self-Care 01 Condition: Fair - Discharge Diagnosis/Problem(s) (1) UTI, Urinary tract infectious disease SNOMED Code(s): 55028222 ICD Code: N39.0 - URINARY TRACT INFECTION, SITE NOT SPECIFIED Status: Acute Priority: High (2) Bladder obstruction SNOMED Code(s): 87972597 ICD Code: N32.0 - BLADDER-NECK OBSTRUCTION Status: Chronic Priority: High Problem Details: Indwelling Vargas catheter (3) Vomiting SNOMED Code(s): 980795681 ICD Code: R11.10 - VOMITING, UNSPECIFIED Status: Resolved Priority: High (4) Hyponatremia SNOMED Code(s): 52159345 ICD Code: E87.1 - HYPO-OSMOLALITY AND HYPONATREMIA Status: Acute Priority : High - Patient Summary/Data Hospital Course: The patient is a 73-year-old gentleman who had been admitted secondary to abdominal pain with nausea and vomiting. The patient also has a history of urinary retention and chronic urinary tract infection with ESBL bacteria. The patient had at that time denied any hematemesis. He also said that his abdominal pain had been improved. The patient was admitted to observation. The patient had been fluid resuscitated with the use of normal saline. Initially the patient's white blood cell count was 13,000 and by day of discharge this had normalized to 8000. The patient had been kept on fluids. The patient also had been taking amoxicillin and this was discontinued and he was started on ceftriaxone. This was done secondary to the patient's history of ESBL bacteria. The patient had continued to improve with this antibiotic. Patient also had been kept on appropriate ADA diet. He continued to improve through the short course of hospitalization and by day of discharge the patient said that he was feeling well enough to go home. Patient had been recommended to continue with his appropriate ADA diet. He is also to have activity as tolerated. The patient has been hemodynamically stable and he's been discharged from acute hospitalization with recommendations listed above. Patient is also to follow-up with his primary care physician. - Patient Instructions Diet: Heart Healthy Diet Activity: As Tolerated Notify Provider of: Fever, Increased Pain - Discharge Plan *PRESCRIPTION DRUG MONITORING PROGRAM REVIEWED*: No *COPY OF PRESCRIPTION DRUG MONITORING REPORT IN PATIENT ANGELICA: No Prescriptions/Med Rec: Ondansetron [Zofran ODT] 4 mg PO Q4H PRN #20 tab.dis PRN Reason: nausea, able to take PO Home Medications: Home Meds Aspirin 325 mg PO DAILY 04/17/17 [History] Gemfibrozil 600 mg PO BID 04/17/17 [History] Levothyroxine 150 mcg PO ACBREAKFAST 04/17/17 [History] Metoprolol Succinate [Toprol XL] 25 mg PO DAILY 04/17/17 [History] Simvastatin [Zocor] 20 mg PO BEDTIME 04/17/17 [History] amLODIPine [Norvasc] 2.5 mg PO QAM 04/27/18 [History] Glimepiride [Amaryl] 2 mg PO QAM 02/03/19 [History] Sertraline HCl 50 mg PO DAILY 02/03/19 [History] Tolterodine Tartrate 2 mg PO BEDTIME 02/03/19 [History] Zolpidem Tartrate 10 mg PO BEDTIME 02/03/19 [History] Pioglitazone [Actos] 15 mg PO DAILY 06/03/19 [History] metFORMIN [Glucophage] 850 mg PO BIDMEALS 06/03/19 [History] Ondansetron [Zofran ODT] 4 mg PO Q4H PRN #20 tab.dis 06/04/19 [Rx] Oxygen Therapy Mode: Room Air Patient Handouts: Ondansetron tablets, Hyponatremia, [id number], Indwelling Urinary Catheter Insertion, Care After, Vomiting, Adult Referrals: Kodi Quiroz MD [Primary Care Provider] - 06/15/19 11:15 am Rowan Curry MD [Physician] - (Dr. Curry's nurse will call you for an appointment. ) - Discharge Summary/Plan Comment DC Time >30 min.: Yes - General Info Date of Service: 06/04/19 Admission Dx/Problem (Free Text: Admission Diagnosis/Problem Admission Diagnosis/Problem Vomiting, urinary retention secondary to frequent UTI, indwelling Vargas catheter Functional Status: Reports: Pain Controlled, Urinating (urinary catheter) - Review of Systems General: Reports: No Symptoms HEENT: Reports: No Symptoms Pulmonary: Reports: No Symptoms Cardiovascular: Reports: No Symptoms Gastrointestinal: Reports: No Symptoms Genitourinary: Reports: No Symptoms Musculoskeletal: Reports: No Symptoms Skin: Reports: No Symptoms Neurological: Reports: No Symptoms Psychiatric: Reports: No Symptoms - Patient Data Vitals - Most Recent: Last Vital Signs Temp 36.2 C 06/04/19 06:55 Pulse 82 06/04/19 09:22 Resp 16 06/04/19 06:55 BP 123/88 06/04/19 09:22 Pulse Ox 95 06/04/19 06:55 Weight - Most Recent: 90.764 kg I&O - Last 24 hours: Intake & Output 06/03/19 06/04/19 06/04/19 22:59 06:59 14:59 Intake Total 1388 1588 340 Output Total 850 1000 Balance 538 588 340 Lab Results - Last 24 hrs: Laboratory Results - last 24 hr 06/03/19 06/03/19 06/03/19 Range/Units 11:42 15:51 21:51 WBC (4.0-11.0) K/uL RBC (4.50-5.90) M/uL Hgb (13.0-17.0) g/dL Hct (38.0-50.0) % MCV (80.0-98.0) fL MCH (27.0-32.0) pg MCHC (31.0-37.0) g/dL RDW Std Deviation (28.0-62.0) fl RDW Coeff of Kalin (11.0-15.0) % Plt Count (150-400) K/uL MPV (7.40-12.00) fL Neut % (Auto) (48.0-80.0) % Lymph % (Auto) (16.0-40.0) % [place] % (Auto) (0.0-15.0) % Eos % (Auto) (0.0-7.0) % Baso % (Auto) (0.0-1.5) % Neut # (Auto) (1.4-5.7) K/uL Lymph # (Auto) (0.6-2.4) K/uL [place] # (Auto) (0.0-0.8) K/uL Eos # (Auto) (0.0-0.7) K/uL Baso # (Auto) (0.0-0.1) K/uL Nucleated RBC % /100WBC Nucleated RBCs # K/uL Sodium (136-148) mmol/L Potassium (3.5-5.1) mmol/L Chloride (98-107) mmol/L Carbon Dioxide (21.0-32.0) mmol/L BUN (7.0-18.0) mg/dL Creatinine (0.8-1.3) mg/dL Est Cr Clr Drug Dosing mL/min Estimated GFR (MDRD) ml/min Glucose (74-106) mg/dL POC Glucose 162 H 159 H 130 H (60-110) mg/dL Calcium (8.5-10.1) mg/dL Total Bilirubin (0.2-1.0) mg/dL AST (15-37) IU/L ALT (14-63) IU/L Alkaline Phosphatase (46-116) U/L Total Protein (6.4-8.2) g/dL Albumin (3.4-5.0) g/dL Globulin (2.6-4.0) g/dL Albumin/Globulin Ratio (0.9-1.6) 06/04/19 06/04/19 06/04/19 Range/Units 05:50 05:50 07:01 WBC 8.02 (4.0-11.0) K/uL RBC 5.14 (4.50-5.90) M/uL Hgb 14.6 (13.0-17.0) g/dL Hct 43.2 (38.0-50.0) % MCV 84.0 (80.0-98.0) fL MCH 28.4 (27.0-32.0) pg MCHC 33.8 (31.0-37.0) g/dL RDW Std Deviation 40.3 (28.0-62.0) fl RDW Coeff of Kalin 13 (11.0-15.0) % Plt Count 188 (150-400) K/uL MPV 8.90 (7.40-12.00) fL Neut % (Auto) 63.3 (48.0-80.0) % Lymph % (Auto) 23.1 (16.0-40.0) % [place] % (Auto) 8.2 (0.0-15.0) % Eos % (Auto) 4.7 (0.0-7.0) % Baso % (Auto) 0.7 (0.0-1.5) % Neut # (Auto) 5.1 (1.4-5.7) K/uL Lymph # (Auto) 1.9 (0.6-2.4) K/uL [place] # (Auto) 0.7 (0.0-0.8) K/uL Eos # (Auto) 0.4 (0.0-0.7) K/uL Baso # (Auto) 0.1 (0.0-0.1) K/uL Nucleated RBC % 0.0 /100WBC Nucleated RBCs # 0 K/uL Sodium 134 L (136-148) mmol/L Potassium 3.5 (3.5-5.1) mmol/L Chloride 101 (98-107) mmol/L Carbon Dioxide 23.3 (21.0-32.0) mmol/L BUN 16 (7.0-18.0) mg/dL Creatinine 0.9 (0.8-1.3) mg/dL Est Cr Clr Drug Dosing 66.30 mL/min Estimated GFR (MDRD) > 60.0 ml/min Glucose 138 H (74-106) mg/dL POC Glucose 128 H (60-110) mg/dL Calcium 8.0 L (8.5-10.1) mg/dL Total Bilirubin 0.5 (0.2-1.0) mg/dL AST 13 L (15-37) IU/L ALT 22 (14-63) IU/L Alkaline Phosphatase 99 (46-116) U/L Total Protein 6.1 L (6.4-8.2) g/dL Albumin 3.2 L (3.4-5.0) g/dL Globulin 2.9 (2.6-4.0) g/dL Albumin/Globulin Ratio 1.1 (0.9-1.6) Med Orders - Current: Current Medications Acetaminophen (Tylenol) 650 mg PO Q4H PRN PRN Reason: Pain (Mild 1-3)/fever Last Admin: 06/03/19 08:55 Dose: 650 mg Amlodipine Besylate (Norvasc) 2.5 mg PO QAM [facility] Last Admin: 06/04/19 09:18 Dose: 2.5 mg Aspirin (Aspirin) 325 mg PO DAILY [facility] Last Admin: 06/04/19 09:18 Dose: 325 mg Docusate Sodium (Colace) 100 mg PO BID PRN PRN Reason: Constipation Gemfibrozil (Lopid) 600 mg PO BID [facility] Last Admin: 06/04/19 09:19 Dose: 600 mg Glimepiride (Amaryl) 2 mg PO QAM [facility] Last Admin: 06/04/19 09:21 Dose: 2 mg Heparin Sodium (Porcine) (Heparin Sodium) 5,000 units SUBCUT Q8H [facility] Last Admin: 06/04/19 06:52 Dose: 5,000 units Sodium Chloride (Normal Saline) 1,000 mls @ 125 mls/hr IV ASDIRECTED [facility] Last Admin: 06/04/19 03:30 Dose: 125 mls/hr Ceftriaxone Sodium 1 gm/ (Sodium Chloride) 50 mls @ 100 mls/hr IV Q24H [facility] Last Admin: 06/04/19 09:31 Dose: 100 mls/hr Insulin Aspart (Novolog) 0 unit SUBCUT ACBED [facility]; Protocol Last Admin: 06/04/19 07:18 Dose: Not Given Levothyroxine Sodium (Levothyroxine) 150 mcg PO ACBREAKFAST [facility] Last Admin: 06/04/19 06:52 Dose: 150 mcg Metformin HCl (Glucophage) 850 mg PO BIDMEALS [facility] Last Admin: 06/04/19 09:19 Dose: 850 mg Metoprolol Succinate (Toprol Xl) 25 mg PO DAILY [facility] Last Admin: 06/04/19 09:22 Dose: 25 mg Ondansetron HCl (Zofran) 4 mg IVPUSH Q6H PRN PRN Reason: Nausea/Vomiting Last Admin: 06/04/19 01:20 Dose: 4 mg Ondansetron HCl (Zofran Odt) 4 mg PO Q4H PRN PRN Reason: nausea, able to take PO Oxycodone HCl (Oxycodone) 5 mg PO Q4H PRN PRN Reason: Pain (moderate 4-6) Zolpidem Tartrate 10 (Mg) 1 each PO BEDTIME [facility] Last Admin: 06/03/19 22:40 Dose: 1 each Pioglitazone HCl (Actos) 15 mg PO DAILY [facility] Last Admin: 06/04/19 09:20 Dose: 15 mg Sertraline HCl (Zoloft) 50 mg PO DAILY [facility] Last Admin: 06/04/19 09:20 Dose: 50 mg Simvastatin (Zocor) 20 mg PO BEDTIME [facility] Last Admin: 06/03/19 21:40 Dose: 20 mg Tolterodine Tartrate (Detrol) 2 mg PO BEDTIME [facility] Last Admin: 06/03/19 21:40 Dose: 2 mg Discontinued Medications Amoxicillin/Clavulanate Potassium (Augmentin 875 Mg/125 Mg) 1 tab PO Q12HR [facility] Sodium Chloride (Normal Saline) 1,000 mls @ 999 mls/hr IV ASDIRECTED [facility] Last Admin: 06/03/19 00:11 Dose: 999 mls/hr Ondansetron HCl (Zofran) 4 mg IVPUSH ONETIME ONE Stop: 06/02/19 23:59 Last Admin: 06/03/19 00:12 Dose: 4 mg Ondansetron HCl (Zofran) 4 mg IVPUSH ONETIME ONE Stop: 06/03/19 00:58 Last Admin: 06/03/19 01:02 Dose: 4 mg - Exam Quality Assessment: Denies: Supplemental Oxygen General: Reports: Alert, Oriented, Cooperative, No Acute Distress HEENT: Reports: Pupils Equal, Pupils Reactive, EOMI Neck: Reports: Supple, Trachea Midline Lungs: Reports: Clear to Auscultation, Normal Respiratory Effort Cardiovascular: Reports: Regular Rate, Regular Rhythm GI/Abdominal Exam: Normal Bowel Sounds, Soft, No Distention Back Exam: Reports: Normal Inspection, Full Range of Motion Extremities: Normal Inspection, Normal Range of Motion, No Pedal Edema Skin: Reports: Warm, Dry, Intact Neurological: Reports: No New Focal Deficit Psy/Mental Status: Reports: Alert, Normal Affect, Normal Mood
== END 2019-06-04 13:08 | disposition home or self-care (01) ==
LOC: MW.ED 23:47 → MW.MS 06-03 01:06
PROVIDERS: ADMIT Internal Medicine; ATTEND Internal Medicine
DX: N39.0 Urinary tract infection, site not specified (principal); N32.0 Bladder-neck obstruction; R33.9 Retention of urine, unspecified; R11.10 Vomiting, unspecified; I25.10 Atherosclerotic heart disease of native coronary artery without angina pectoris; M06.9 Rheumatoid arthritis, unspecified; F32.9 Major depressive disorder, single episode, unspecified; E78.00 Pure hypercholesterolemia, unspecified; E03.9 Hypothyroidism, unspecified; E11.9 Type 2 diabetes mellitus without complications; E66.9 Obesity, unspecified; E87.1 Hypo-osmolality and hyponatremia; Z68.31 Body mass index [BMI] 31.0-31.9, adult; Z79.82 Long term (current) use of aspirin; Z79.899 Other long term (current) drug therapy; Z96.0 Presence of urogenital implants; Z79.84 Long term (current) use of oral hypoglycemic drugs
CPT/HCPCS: 36415; 74022; 80053; 81001; 82962; 83690; 85025; 93005; 96361; 96365; 96372; 96375; 96376; 99285; A9270; G0378; J0696; J1644; J2405; J7040; J7050; 96374; 99283